=== PATIENT | female | born 1950 ===

== ENCOUNTER 2017-11-06 15:35 | Inpatient (IN) | payer MEDICARE, OTHER ==
[~2017-11-06] VITALS: Ht 154.9 cm; Wt 63.1 kg
[2017-11-06 16:48] VITALS: BP 122/70
[2017-11-06] MEDS ORDERED: DOCUSATE 100 MG CAPSULE PO PRN (17:00)
[2017-11-06] MEDS ORDERED: POLYETHYLENE GLYCOL 17 GM PACKET PO PRN (17:00)
[2017-11-06] MEDS ORDERED: ONDANSETRON ODT 4 MG PO PRN (17:00)
[2017-11-06] MEDS ORDERED: BISACODYL 10 MG SUPP PR PRN (17:00)
[2017-11-06] MEDS ORDERED: AMLO5TAB4 PO (18:04)
[2017-11-06] MEDS ORDERED: DONE10TA56 PO (18:10)
[2017-11-06] MEDS ORDERED: OXYB15TA4 PO (18:10)
[2017-11-06] MEDS ORDERED: QUET100T4 PO (18:10)
[2017-11-06] MEDS ORDERED: DIVA250T4 PO (18:10)
[2017-11-06] MEDS ORDERED: DULO60CA7 PO (18:10)
[2017-11-06] MEDS ORDERED: LEVO50TA5 PO (18:10)
[2017-11-06] MEDS ORDERED: ASPI-621 PO (18:10)
[2017-11-06] MEDS ORDERED: LOVA40TA2 PO (18:10)
[2017-11-06] MEDS ORDERED: POTA25TA4 PO (18:10)
[2017-11-06 18:16] LABS: BASOPHILS # (AUTO) 0.04 x10^3/uL (0-0.1); BASOPHILS % (AUTO) 1 % (0-1); EOSINOPHILS # (AUTO) 0.14 x10^3/uL (0-0.4); EOSINOPHILS % (AUTO) 3 % (1-7); LYMPHOCYTES # (AUTO) 1.85 x10^3/uL (1-3.4); LYMPHOCYTES % (AUTO) 34 % (22-44); MD NO; MEAN CORPUSCULAR HEMOGLOBIN 26.3 pg (27.0-34.8); MEAN CORPUSCULAR HGB CONC 32.4 g/dL (32.4-35.8); MEAN CORPUSCULAR VOLUME 81.1 fL (80-100); MEAN PLATELET VOLUME 8.6 fL (7.4-10.4); MONOCYTES # (AUTO) 0.43 x10^3/uL (0.2-0.8); MONOCYTES % (AUTO) 8 % (2-9); NEUTROPHILS # (AUTO) 3.03 x10^3/uL (1.8-6.8); NEUTROPHILS % (AUTO) 55 % (42-75); PLATELET COUNT 261 x10^3/uL (130-400); RED BLOOD COUNT 4.73 x10^6/uL (3.82-5.3); RED CELL DISTRIBUTION WIDTH 20.3 % (9.6-15.2)
[2017-11-06 18:22] LABS: HCT (SEDRATE) 38.4 % (34.6-47.8)
[2017-11-06 18:24] LABS: ALBUMIN 3.3 g/dL (3.4-5.0); ANION GAP 5 mmol/L (5-15); CALCIUM 8.6 mg/dL (8.5-10.1); CHLORIDE 103 mmol/L (98-107)
[2017-11-06 18:50] LABS: ALANINE AMINOTRANSFERASE 22 U/L (12-78); ALKALINE PHOSPHATASE 70 U/L (45-117); BILIRUBIN,TOTAL 0.2 mg/dL (0.2-1.0); CHOL/HDL RATIO 2.1; CHOLESTEROL, TOTAL 201 mg/dL (140-239); CREATININE 1.09 mg/dL (0.55-1.02); FOLATE LEVEL 17.7 ng/mL (3.1-17.5); HDL CHOL % 47 % (28-40); HDL CHOLESTEROL (DIRECT) 94 mg/dL (40-60); LDL CHOLESTEROL,CALCULATED 87 mg/dL (54-169); LDL/HDL RATIO 0.9 (0.5-3.0); T4 (THYROXINE) 11.3 mcg/dL (4.8-13.9); TOTAL PROTEIN 6.8 g/dL (6.4-8.2); TRIGLYCERIDES 100 mg/dL (50-200); VLDL CHOLESTEROL 20 mg/dL (0-25)
[2017-11-06 19:55] VITALS: BP 102/48
[2017-11-06] MEDS: NICOTINE 14MG/24 HR PATCH.TD24 TD SCH (20:19)
[2017-11-06] MEDS: DIVALPROEX 250 MG TABLET.DR PO SCH (20:20)
[2017-11-06] MEDS: QUETIAPINE 100MG TABLET PO SCH (20:21)
[2017-11-06] MEDS: LOVASTATIN 40 MG TABLET PO SCH (20:21)
[2017-11-06] MEDS: SODIUM CHLORIDE 0.9% 1,000 ML IV SCH (20:23)
[2017-11-06] MEDS: HEPARIN 5,000 UNITS/ML, 1ML SQ SCH (20:24)
[2017-11-07] MEDS: SODIUM CHLORIDE 0.9% 1,000 ML IV SCH ×3 (04:31→19:21)
[2017-11-07] MEDS: HEPARIN 5,000 UNITS/ML, 1ML SQ SCH ×3 (05:10→19:22)
[2017-11-07] MEDS: LEVOTHYROXINE 50 MCG TABLET PO SCH (05:11)
[2017-11-07 07:00] VITALS: BP 151/78
[2017-11-07] MEDS: ASPIRIN 81 MG TABLET EC PO SCH (08:18)
[2017-11-07] MEDS: DIVALPROEX 250 MG TABLET.DR PO SCH ×3 (08:19→20:28)
[2017-11-07] MEDS: QUETIAPINE 100MG TABLET PO SCH ×2 (08:19→20:28)
[2017-11-07] MEDS: DULOXETINE 30 MG CAPSULE.DR PO SCH (08:19)
[2017-11-07] MEDS ORDERED: OXYBUTYNIN CHLORIDE 5 MG TABLET PO SCH (09:00)
[2017-11-07] MEDS ORDERED: QUETIAPINE 25MG TABLET ONE (10:43)
[2017-11-07] MEDS: QUETIAPINE 25MG TABLET PO PRN (10:46)
[2017-11-07] MEDS ORDERED: QUETIAPINE 25MG TABLET PO SCH (11:00)
[2017-11-07 11:57] LABS: MICROSCOPIC AUTO
[2017-11-07 12:01] LABS: CULTURE INDICATED? YES
[2017-11-07] MEDS: NICOTINE 14MG/24 HR PATCH.TD24 TD SCH (19:18)
[2017-11-07 19:50] VITALS: BP 133/72
[2017-11-07] MEDS: LOVASTATIN 40 MG TABLET PO SCH (20:27)
[2017-11-07] MEDS: OXYBUTYNIN CHLORIDE 5 MG TABLET PO SCH (20:28)
[2017-11-08] MEDS: QUETIAPINE 25MG TABLET PO PRN ×2 (02:10→18:37)
[2017-11-08] MEDS: SODIUM CHLORIDE 0.9% 1,000 ML IV SCH ×2 (03:09→12:00)
[2017-11-08] MEDS: LEVOTHYROXINE 50 MCG TABLET PO SCH (04:23)
[2017-11-08] MEDS: ACETAMINOPHEN 325 MG TABLET PO PRN (04:24)
[2017-11-08] MEDS: HEPARIN 5,000 UNITS/ML, 1ML SQ SCH ×3 (05:00→21:15)
[2017-11-08 07:23] VITALS: BP 135/78
[2017-11-08] MEDS: OXYBUTYNIN CHLORIDE 5 MG TABLET PO SCH ×2 (09:42→21:14)
[2017-11-08] MEDS: DULOXETINE 30 MG CAPSULE.DR PO SCH (09:42)
[2017-11-08] MEDS: QUETIAPINE 100MG TABLET PO SCH ×2 (09:42→21:14)
[2017-11-08] MEDS: ASPIRIN 81 MG TABLET EC PO SCH (09:42)
[2017-11-08] MEDS: DIVALPROEX 250 MG TABLET.DR PO SCH ×3 (09:42→21:13)
[2017-11-08] MEDS: LORazepam 0.5MG TABLET PO PRN (18:36)
[2017-11-08 20:00] VITALS: BP 126/78
[2017-11-08] MEDS ORDERED: SODIUM CHLORIDE FLUSH 10ML SYR IVF SCH (21:00)
[2017-11-08] MEDS: LOVASTATIN 40 MG TABLET PO SCH (21:13)
[2017-11-08] MEDS: NICOTINE 14MG/24 HR PATCH.TD24 TD SCH (21:19)
[2017-11-09] MEDS: HEPARIN 5,000 UNITS/ML, 1ML SQ SCH ×2 (05:36→12:52)
[2017-11-09] MEDS: LEVOTHYROXINE 50 MCG TABLET PO SCH (05:36)
[2017-11-09 07:41] VITALS: BP 138/69
[2017-11-09] MEDS: OXYBUTYNIN CHLORIDE 5 MG TABLET PO SCH ×2 (08:56→20:04)
[2017-11-09] MEDS: DIVALPROEX 250 MG TABLET.DR PO SCH ×3 (08:56→20:04)
[2017-11-09] MEDS: QUETIAPINE 100MG TABLET PO SCH ×2 (08:57→20:05)
[2017-11-09] MEDS: ASPIRIN 81 MG TABLET EC PO SCH (08:57)
[2017-11-09] MEDS: DULOXETINE 30 MG CAPSULE.DR PO SCH (08:57)
[2017-11-09] MEDS: QUETIAPINE 25MG TABLET PO PRN (15:53)
[2017-11-09] MEDS: LORazepam 0.5MG TABLET PO PRN (15:53)
[2017-11-09] MEDS: NICOTINE 14MG/24 HR PATCH.TD24 TD SCH (19:11)
[2017-11-09 20:00] VITALS: BP 100/70
[2017-11-09] MEDS: LOVASTATIN 40 MG TABLET PO SCH (20:04)
[2017-11-09] MEDS: RISPERIDONE 0.5 MG TABLET PO SCH (20:05)
[2017-11-10] MEDS: LEVOTHYROXINE 50 MCG TABLET PO SCH (05:15)
[2017-11-10 08:03] VITALS: BP 114/74
[2017-11-10] MEDS: DULOXETINE 30 MG CAPSULE.DR PO SCH (08:43)
[2017-11-10] MEDS: ASPIRIN 81 MG TABLET EC PO SCH (08:44)
[2017-11-10] MEDS: DIVALPROEX 250 MG TABLET.DR PO SCH ×3 (08:44→20:21)
[2017-11-10] MEDS: LORazepam 0.5MG TABLET PO PRN ×2 (08:45→19:54)
[2017-11-10] MEDS: RISPERIDONE 0.5 MG TABLET PO SCH ×2 (08:45→20:22)
[2017-11-10] MEDS: OXYBUTYNIN CHLORIDE 5 MG TABLET PO SCH ×2 (08:45→20:22)
[2017-11-10] MEDS: QUETIAPINE 100MG TABLET PO SCH ×2 (08:47→20:22)
[2017-11-10] MEDS: QUETIAPINE 25MG TABLET PO PRN (13:52)
[2017-11-10 19:36] VITALS: BP 111/69
[2017-11-10] MEDS: NICOTINE 14MG/24 HR PATCH.TD24 TD SCH (19:53)
[2017-11-10] MEDS: LOVASTATIN 40 MG TABLET PO SCH (20:21)
[2017-11-11] MEDS: QUETIAPINE 25MG TABLET PO PRN ×2 (04:50→17:41)
[2017-11-11] MEDS: LEVOTHYROXINE 50 MCG TABLET PO SCH (05:20)
[2017-11-11 07:22] VITALS: BP 116/76
[2017-11-11] MEDS: OXYBUTYNIN CHLORIDE 5 MG TABLET PO SCH ×2 (08:37→20:10)
[2017-11-11] MEDS: DIVALPROEX 250 MG TABLET.DR PO SCH ×3 (08:37→20:10)
[2017-11-11] MEDS: DULOXETINE 30 MG CAPSULE.DR PO SCH (08:37)
[2017-11-11] MEDS: RISPERIDONE 0.5 MG TABLET PO SCH ×2 (08:38→20:12)
[2017-11-11] MEDS: ASPIRIN 81 MG TABLET EC PO SCH (08:38)
[2017-11-11] MEDS: QUETIAPINE 100MG TABLET PO SCH ×2 (08:39→20:11)
[2017-11-11] MEDS: LORazepam 0.5MG TABLET PO PRN (17:41)
[2017-11-11 19:39] VITALS: BP 119/76
[2017-11-11] MEDS: LOVASTATIN 40 MG TABLET PO SCH (20:10)
[2017-11-11] MEDS: NICOTINE 14MG/24 HR PATCH.TD24 TD SCH (20:10)
[2017-11-12] MEDS: LEVOTHYROXINE 50 MCG TABLET PO SCH (05:34)
[2017-11-12 07:36] VITALS: BP 113/70
[2017-11-12] MEDS: QUETIAPINE 100MG TABLET PO SCH ×2 (07:56→20:21)
[2017-11-12] MEDS: DULOXETINE 30 MG CAPSULE.DR PO SCH (07:56)
[2017-11-12] MEDS: DIVALPROEX 250 MG TABLET.DR PO SCH ×3 (07:56→20:21)
[2017-11-12] MEDS: OXYBUTYNIN CHLORIDE 5 MG TABLET PO SCH ×2 (07:57→20:21)
[2017-11-12] MEDS: ASPIRIN 81 MG TABLET EC PO SCH (07:57)
[2017-11-12] MEDS: RISPERIDONE 0.5 MG TABLET PO SCH ×2 (07:57→20:21)
[2017-11-12 19:34] VITALS: BP 121/82
[2017-11-12] MEDS: LORazepam 0.5MG TABLET PO PRN (20:21)
[2017-11-12] MEDS: LOVASTATIN 40 MG TABLET PO SCH (20:21)
[2017-11-12] MEDS: NICOTINE 14MG/24 HR PATCH.TD24 TD SCH (20:22)
[2017-11-13] MEDS: LEVOTHYROXINE 50 MCG TABLET PO SCH (05:43)
[2017-11-13 07:20] VITALS: BP 126/77
[2017-11-13] MEDS: DULOXETINE 30 MG CAPSULE.DR PO SCH (09:05)
[2017-11-13] MEDS: DIVALPROEX 250 MG TABLET.DR PO SCH ×3 (09:05→20:53)
[2017-11-13] MEDS: ASPIRIN 81 MG TABLET EC PO SCH (09:06)
[2017-11-13] MEDS: OXYBUTYNIN CHLORIDE 5 MG TABLET PO SCH ×2 (09:06→20:54)
[2017-11-13] MEDS: RISPERIDONE 0.5 MG TABLET PO SCH ×2 (09:07→20:54)
[2017-11-13] MEDS: QUETIAPINE 100MG TABLET PO SCH ×2 (09:09→20:56)
[2017-11-13] MEDS: LORazepam 0.5MG TABLET PO PRN ×2 (13:00→22:03)
[2017-11-13 19:49] VITALS: BP 114/63
[2017-11-13] MEDS: NICOTINE 14MG/24 HR PATCH.TD24 TD SCH (20:53)
[2017-11-13] MEDS: LOVASTATIN 40 MG TABLET PO SCH (20:54)
[2017-11-14] MEDS: ACETAMINOPHEN 325 MG TABLET PO PRN ×2 (01:45→09:00)
[2017-11-14] MEDS: QUETIAPINE 25MG TABLET PO PRN ×2 (02:00→11:41)
[2017-11-14] MEDS: LEVOTHYROXINE 50 MCG TABLET PO SCH (05:17)
[2017-11-14] MEDS: ASPIRIN 81 MG TABLET EC PO SCH (08:13)
[2017-11-14] MEDS: OXYBUTYNIN CHLORIDE 5 MG TABLET PO SCH ×2 (08:13→20:38)
[2017-11-14] MEDS: DIVALPROEX 250 MG TABLET.DR PO SCH ×3 (08:13→20:37)
[2017-11-14] MEDS: DULOXETINE 30 MG CAPSULE.DR PO SCH (08:13)
[2017-11-14] MEDS: QUETIAPINE 100MG TABLET PO SCH ×2 (08:13→20:41)
[2017-11-14] MEDS: RISPERIDONE 0.5 MG TABLET PO SCH ×2 (08:13→20:40)
[2017-11-14 08:16] VITALS: BP 143/86
[2017-11-14] MEDS: LORazepam 0.5MG TABLET PO PRN ×2 (11:41→20:41)
[2017-11-14] MEDS: NICOTINE 14MG/24 HR PATCH.TD24 TD SCH (19:24)
[2017-11-14 19:53] VITALS: BP 119/78
[2017-11-14] MEDS: LOVASTATIN 40 MG TABLET PO SCH (20:38)
[2017-11-15] MEDS: LEVOTHYROXINE 50 MCG TABLET PO SCH (05:42)
[2017-11-15 07:44] VITALS: BP 114/72
[2017-11-15] MEDS ORDERED: DULOXETINE 30 MG CAPSULE.DR PO SCH (09:00)
[2017-11-15] MEDS ORDERED: DULOXETINE 20 MG CAPSULE.DR ONE (09:15)
[2017-11-15] MEDS: ASPIRIN 81 MG TABLET EC PO SCH (09:21)
[2017-11-15] MEDS: RISPERIDONE 0.5 MG TABLET PO SCH (09:22)
[2017-11-15] MEDS: DIVALPROEX 250 MG TABLET.DR PO SCH ×3 (09:22→20:24)
[2017-11-15] MEDS: OXYBUTYNIN CHLORIDE 5 MG TABLET PO SCH ×2 (09:23→20:26)
[2017-11-15] MEDS: QUETIAPINE 100MG TABLET PO SCH ×2 (09:23→20:24)
[2017-11-15] MEDS: DULOXETINE 20 MG CAPSULE.DR PO SCH (09:35)
[2017-11-15 16:08] LABS: MICROSCOPIC INDICATED
[2017-11-15] MEDS: NICOTINE 14MG/24 HR PATCH.TD24 TD SCH (19:22)
[2017-11-15 19:43] VITALS: BP 104/69
[2017-11-15] MEDS: LOVASTATIN 40 MG TABLET PO SCH (20:23)
[2017-11-15] MEDS: LORazepam 0.5MG TABLET PO PRN (20:24)
[2017-11-15] MEDS: ACETAMINOPHEN 325 MG TABLET PO PRN (20:24)
[2017-11-16 05:11] LABS: BASOPHILS # (AUTO) 0.04 x10^3/uL (0-0.1); BASOPHILS % (AUTO) 1 % (0-1); EOSINOPHILS # (AUTO) 0.13 x10^3/uL (0-0.4); EOSINOPHILS % (AUTO) 3 % (1-7); LYMPHOCYTES # (AUTO) 1.53 x10^3/uL (1-3.4); LYMPHOCYTES % (AUTO) 35 % (22-44); MD NO; MEAN CORPUSCULAR HEMOGLOBIN 27.1 pg (27.0-34.8); MEAN CORPUSCULAR HGB CONC 33.3 g/dL (32.4-35.8); MEAN CORPUSCULAR VOLUME 81.4 fL (80-100); MONOCYTES # (AUTO) 0.47 x10^3/uL (0.2-0.8); MONOCYTES % (AUTO) 11 % (2-9); NEUTROPHILS # (AUTO) 2.16 x10^3/uL (1.8-6.8); NEUTROPHILS % (AUTO) 50 % (42-75); PLATELET COUNT 200 x10^3/uL (130-400); RED CELL DISTRIBUTION WIDTH 19.5 % (9.6-15.2)
[2017-11-16 05:15] LABS: CHLORIDE 104 mmol/L (98-107)
[2017-11-16 05:21] LABS: ALANINE AMINOTRANSFERASE 16 U/L (12-78); ALBUMIN 3.3 g/dL (3.4-5.0); ALKALINE PHOSPHATASE 83 U/L (45-117); ANION GAP 5 mmol/L (5-15); BILIRUBIN,TOTAL 0.2 mg/dL (0.2-1.0); CALCIUM 8.8 mg/dL (8.5-10.1); CREATININE 1.06 mg/dL (0.55-1.02); TOTAL PROTEIN 6.7 g/dL (6.4-8.2)
[2017-11-16] MEDS: LEVOTHYROXINE 50 MCG TABLET PO SCH (06:20)
[2017-11-16 08:20] VITALS: BP 116/67
[2017-11-16] MEDS: DULOXETINE 20 MG CAPSULE.DR PO SCH (08:28)
[2017-11-16] MEDS: DIVALPROEX 250 MG TABLET.DR PO SCH ×3 (08:28→20:12)
[2017-11-16] MEDS: ASPIRIN 81 MG TABLET EC PO SCH (08:28)
[2017-11-16] MEDS: QUETIAPINE 100MG TABLET PO SCH ×2 (08:29→20:11)
[2017-11-16] MEDS: OXYBUTYNIN CHLORIDE 5 MG TABLET PO SCH ×2 (08:29→20:11)
[2017-11-16] MEDS: NICOTINE 14MG/24 HR PATCH.TD24 TD SCH (18:27)
[2017-11-16] MEDS: LOVASTATIN 40 MG TABLET PO SCH (20:11)
[2017-11-16] MEDS: ACETAMINOPHEN 325 MG TABLET PO PRN (20:11)
[2017-11-16 20:15] VITALS: BP 132/78
[2017-11-17] MEDS: LEVOTHYROXINE 50 MCG TABLET PO SCH (05:23)
[2017-11-17 07:29] VITALS: BP 114/57
[2017-11-17] MEDS: ASPIRIN 81 MG TABLET EC PO SCH (07:57)
[2017-11-17] MEDS: DIVALPROEX 250 MG TABLET.DR PO SCH ×3 (07:57→20:16)
[2017-11-17] MEDS: DULOXETINE 20 MG CAPSULE.DR PO SCH ×3 (07:57→08:12)
[2017-11-17] MEDS: OXYBUTYNIN CHLORIDE 5 MG TABLET PO SCH ×2 (07:58→20:18)
[2017-11-17] MEDS: QUETIAPINE 100MG TABLET PO SCH ×2 (07:58→20:17)
[2017-11-17] MEDS: LORazepam 0.5MG TABLET PO PRN (09:08)
[2017-11-17] MEDS: QUETIAPINE 25MG TABLET PO PRN (09:08)
[2017-11-17] MEDS: NICOTINE 14MG/24 HR PATCH.TD24 TD SCH (19:38)
[2017-11-17 19:46] VITALS: BP_SYST 109; BP_SYST 123; BP_DIAS 66; BP_DIAS 78
[2017-11-17] MEDS: TRAZODONE 50MG TABLET PO SCH (20:16)
[2017-11-17] MEDS: LOVASTATIN 40 MG TABLET PO SCH (20:17)
[2017-11-18] MEDS: LORazepam 0.5MG TABLET PO PRN ×3 (00:45→20:08)
[2017-11-18] MEDS: LEVOTHYROXINE 50 MCG TABLET PO SCH (05:56)
[2017-11-18 07:27] VITALS: BP 122/71
[2017-11-18] MEDS: OXYBUTYNIN CHLORIDE 5 MG TABLET PO SCH ×2 (08:14→20:07)
[2017-11-18] MEDS: DIVALPROEX 250 MG TABLET.DR PO SCH ×3 (08:14→20:06)
[2017-11-18] MEDS: ASPIRIN 81 MG TABLET EC PO SCH (08:15)
[2017-11-18] MEDS: QUETIAPINE 100MG TABLET PO SCH (08:15)
[2017-11-18] MEDS ORDERED: OLANZAPINE 10 MG TABLET PO SCH (12:30)
[2017-11-18] MEDS ORDERED: OLANZAPINE 10 MG TABLET ONE (14:20)
[2017-11-18] MEDS ORDERED: OLANZAPINE 10 MG INJ IM STA (18:30)
[2017-11-18] MEDS ORDERED: OLANZAPINE 10 MG INJ IM ONE (18:34)
[2017-11-18] MEDS: NICOTINE 14MG/24 HR PATCH.TD24 TD SCH (19:38)
[2017-11-18 19:44] VITALS: BP 110/72
[2017-11-18] MEDS: TRAZODONE 50MG TABLET PO SCH (20:06)
[2017-11-18] MEDS: OLANZAPINE 10 MG TABLET PO SCH (20:07)
[2017-11-18] MEDS: LOVASTATIN 40 MG TABLET PO SCH (20:08)
[2017-11-19] MEDS: LORazepam 0.5MG TABLET PO PRN ×3 (01:25→20:42)
[2017-11-19] MEDS: LEVOTHYROXINE 50 MCG TABLET PO SCH (05:29)
[2017-11-19 07:18] VITALS: BP 117/73
[2017-11-19] MEDS: DIVALPROEX 250 MG TABLET.DR PO SCH ×3 (07:40→20:40)
[2017-11-19] MEDS: OLANZAPINE 10 MG TABLET PO SCH ×2 (07:41→16:58)
[2017-11-19] MEDS: OXYBUTYNIN CHLORIDE 5 MG TABLET PO SCH ×2 (07:41→20:42)
[2017-11-19] MEDS: ASPIRIN 81 MG TABLET EC PO SCH (07:42)
[2017-11-19] MEDS: NICOTINE 14MG/24 HR PATCH.TD24 TD SCH (19:00)
[2017-11-19 19:53] VITALS: BP 128/74
[2017-11-19] MEDS: TRAZODONE 50MG TABLET PO SCH (20:40)
[2017-11-19] MEDS: LOVASTATIN 40 MG TABLET PO SCH (20:41)
[2017-11-19] MEDS: LORazepam 2 MG/ML, 1ML IM PRN (21:51)
[2017-11-19] MEDS ORDERED: LORazepam 2 MG/ML, 1ML IM ONE (23:00)
[2017-11-20] MEDS: LEVOTHYROXINE 50 MCG TABLET PO SCH ×2 (05:59→09:25)
[2017-11-20 09:13] VITALS: BP 127/79
[2017-11-20] MEDS: OLANZAPINE 10 MG TABLET PO SCH ×2 (09:52→17:15)
[2017-11-20] MEDS: ASPIRIN 81 MG TABLET EC PO SCH (09:52)
[2017-11-20] MEDS: DIVALPROEX 250 MG TABLET.DR PO SCH ×3 (09:52→21:55)
[2017-11-20] MEDS: OXYBUTYNIN CHLORIDE 5 MG TABLET PO SCH ×2 (09:53→20:30)
[2017-11-20] MEDS: LORazepam 0.5MG TABLET PO PRN ×2 (13:53→20:32)
[2017-11-20] MEDS: NICOTINE 14MG/24 HR PATCH.TD24 TD SCH (18:41)
[2017-11-20 19:24] VITALS: BP 121/80
[2017-11-20] MEDS: LOVASTATIN 40 MG TABLET PO SCH (20:30)
[2017-11-20] MEDS: GABAPENTIN 300 MG CAPSULE PO SCH (20:30)
[2017-11-20] MEDS ORDERED: LORazepam 2 MG/ML, 1ML IM ONE (23:00)
[2017-11-21] MEDS: LEVOTHYROXINE 50 MCG TABLET PO SCH ×2 (06:11→10:06)
[2017-11-21 08:55] VITALS: BP 126/74
[2017-11-21] MEDS: OXYBUTYNIN CHLORIDE 5 MG TABLET PO SCH ×2 (09:00→21:02)
[2017-11-21] MEDS: DIVALPROEX 250 MG TABLET.DR PO SCH ×3 (11:04→21:02)
[2017-11-21] MEDS: ASPIRIN 81 MG TABLET EC PO SCH (11:04)
[2017-11-21] MEDS: OLANZAPINE 10 MG TABLET PO SCH ×2 (11:05→17:03)
[2017-11-21] MEDS: NICOTINE 14MG/24 HR PATCH.TD24 TD SCH (17:24)
[2017-11-21 19:44] VITALS: BP 106/71
[2017-11-21] MEDS: GABAPENTIN 300 MG CAPSULE PO SCH (20:48)
[2017-11-21] MEDS: LORazepam 2 MG/ML, 1ML IM PRN (21:00)
[2017-11-21] MEDS: LOVASTATIN 40 MG TABLET PO SCH (21:03)
[2017-11-22] MEDS ORDERED: LORazepam 2 MG/ML, 1ML IM PRN (04:30)
[2017-11-22] MEDS: LEVOTHYROXINE 50 MCG TABLET PO SCH (06:01)
[2017-11-22 07:27] VITALS: BP 99/69
[2017-11-22 07:55] VITALS: BP 99/69
[2017-11-22] MEDS: OXYBUTYNIN CHLORIDE 5 MG TABLET PO SCH ×2 (09:59→21:47)
[2017-11-22] MEDS: OLANZAPINE 10 MG TABLET PO SCH ×2 (09:59→16:12)
[2017-11-22] MEDS: DIVALPROEX 250 MG TABLET.DR PO SCH ×3 (09:59→21:42)
[2017-11-22] MEDS: ASPIRIN 81 MG TABLET EC PO SCH (09:59)
[2017-11-22] MEDS: LORazepam 0.5MG TABLET PO PRN (09:59)
[2017-11-22 15:06] LABS: BASOPHILS # (AUTO) 0.05 x10^3/uL (0-0.1); BASOPHILS % (AUTO) 1 % (0-1); EOSINOPHILS # (AUTO) 0.14 x10^3/uL (0-0.4); EOSINOPHILS % (AUTO) 2 % (1-7); LYMPHOCYTES # (AUTO) 1.54 x10^3/uL (1-3.4); LYMPHOCYTES % (AUTO) 22 % (22-44); MD NO; MEAN CORPUSCULAR HEMOGLOBIN 26.4 pg (27.0-34.8); MEAN CORPUSCULAR HGB CONC 32.8 g/dL (32.4-35.8); MEAN CORPUSCULAR VOLUME 80.6 fL (80-100); MONOCYTES # (AUTO) 0.73 x10^3/uL (0.2-0.8); MONOCYTES % (AUTO) 11 % (2-9); NEUTROPHILS % (AUTO) 65 % (42-75); PLATELET COUNT 219 x10^3/uL (130-400); RED CELL DISTRIBUTION WIDTH 20.7 % (9.6-15.2)
[2017-11-22 15:09] LABS: ALBUMIN 3.3 g/dL (3.4-5.0); ANION GAP 7 mmol/L (5-15); CALCIUM 9.2 mg/dL (8.5-10.1); CHLORIDE 108 mmol/L (98-107); CREATININE 0.93 mg/dL (0.55-1.02)
[2017-11-22] MEDS ORDERED: LORazepam 2 MG/ML, 1ML IVPush ONE (15:30)
[2017-11-22] MEDS ORDERED: OMNIPAQUE 350 MG/ML, 75ML BOTTLE ONE (17:16)
[2017-11-22] MEDS: NICOTINE 14MG/24 HR PATCH.TD24 TD SCH (18:23)
[2017-11-22] MEDS ORDERED: LORazepam 2 MG/ML, 1ML ONE (20:12)
[2017-11-22] MEDS ORDERED: LORazepam 2 MG/ML, 1ML IM ONE (20:15)
[2017-11-22 21:00] VITALS: BP 123/75
[2017-11-22] MEDS: LOVASTATIN 40 MG TABLET PO SCH (21:47)
[2017-11-22] MEDS: GABAPENTIN 300 MG CAPSULE PO SCH (21:47)
[2017-11-23] MEDS: LEVOTHYROXINE 50 MCG TABLET PO SCH (06:22)
[2017-11-23 08:00] VITALS: BP 114/75
[2017-11-23 09:00] LABS: MICROSCOPIC AUTO
[2017-11-23 09:04] LABS: CULTURE INDICATED? NO
[2017-11-23] MEDS: OXYBUTYNIN CHLORIDE 5 MG TABLET PO SCH ×2 (09:52→20:02)
[2017-11-23] MEDS: DIVALPROEX 250 MG TABLET.DR PO SCH ×3 (09:53→20:03)
[2017-11-23] MEDS: ASPIRIN 81 MG TABLET EC PO SCH (09:53)
[2017-11-23] MEDS: OLANZAPINE 10 MG TABLET PO SCH ×2 (09:53→17:29)
[2017-11-23] MEDS: ACETAMINOPHEN 325 MG TABLET PO PRN ×2 (09:53→16:06)
[2017-11-23] MEDS ORDERED: OLANZAPINE 10 MG INJ IM ONE (13:45)
[2017-11-23] MEDS: OLANZAPINE 10 MG INJ IM PRN (14:12)
[2017-11-23] MEDS: NICOTINE 14MG/24 HR PATCH.TD24 TD SCH (18:17)
[2017-11-23 19:23] VITALS: BP 121/80
[2017-11-23] MEDS: LOVASTATIN 40 MG TABLET PO SCH (20:02)
[2017-11-23] MEDS: GABAPENTIN 300 MG CAPSULE PO SCH (20:03)
[2017-11-24] MEDS: LEVOTHYROXINE 50 MCG TABLET PO SCH (05:51)
[2017-11-24] MEDS: ASPIRIN 81 MG TABLET EC PO SCH (07:56)
[2017-11-24] MEDS: OXYBUTYNIN CHLORIDE 5 MG TABLET PO SCH ×2 (07:56→20:29)
[2017-11-24] MEDS: DIVALPROEX 250 MG TABLET.DR PO SCH (07:56)
[2017-11-24] MEDS: OLANZAPINE 10 MG TABLET PO SCH (07:56)
[2017-11-24] MEDS: LORazepam 0.5MG TABLET PO PRN (07:57)
[2017-11-24 08:01] VITALS: BP 135/86
[2017-11-24 08:27] LABS: BASOPHILS # (AUTO) 0.05 x10^3/uL (0-0.1); BASOPHILS % (AUTO) 1 % (0-1); EOSINOPHILS # (AUTO) 0.09 x10^3/uL (0-0.4); EOSINOPHILS % (AUTO) 1 % (1-7); LYMPHOCYTES # (AUTO) 2.44 x10^3/uL (1-3.4); LYMPHOCYTES % (AUTO) 27 % (22-44); MD NO; MEAN CORPUSCULAR HEMOGLOBIN 26.3 pg (27.0-34.8); MEAN CORPUSCULAR HGB CONC 32.4 g/dL (32.4-35.8); MEAN CORPUSCULAR VOLUME 81.2 fL (80-100); MEAN PLATELET VOLUME 9.4 fL (7.4-10.4); MONOCYTES % (AUTO) 12 % (2-9); NEUTROPHILS # (AUTO) 5.24 x10^3/uL (1.8-6.8); NEUTROPHILS % (AUTO) 59 % (42-75); PLATELET COUNT 223 x10^3/uL (130-400); RED BLOOD COUNT 4.73 x10^6/uL (3.82-5.3); RED CELL DISTRIBUTION WIDTH 21.1 % (9.6-15.2)
[2017-11-24 08:35] LABS: ANION GAP 5 mmol/L (5-15); CALCIUM 10.2 mg/dL (8.5-10.1); CHLORIDE 109 mmol/L (98-107); CREATININE 1.12 mg/dL (0.55-1.02)
[2017-11-24] MEDS ORDERED: ZIPRASIDONE 20MG CAPSULE ONE (11:10)
[2017-11-24] MEDS ORDERED: ZIPRASIDONE 20MG CAPSULE PO SCH (11:30)
[2017-11-24] MEDS: NICOTINE 14MG/24 HR PATCH.TD24 TD SCH (19:30)
[2017-11-24 19:53] VITALS: BP 125/67
[2017-11-24] MEDS: DIVALPROEX 500 MG TABLET.DR PO SCH (20:29)
[2017-11-24] MEDS: ZIPRASIDONE 20MG CAPSULE PO SCH (20:30)
[2017-11-24] MEDS: GABAPENTIN 300 MG CAPSULE PO SCH (20:30)
[2017-11-24] MEDS: LOVASTATIN 40 MG TABLET PO SCH (20:30)
[2017-11-24] MEDS ORDERED: OLANZAPINE 5 MG TABLET PO SCH (21:00)
[2017-11-25] MEDS: LORazepam 0.5MG TABLET PO PRN ×3 (00:24→16:26)
[2017-11-25] MEDS: LEVOTHYROXINE 50 MCG TABLET PO SCH (05:25)
[2017-11-25] MEDS: ASPIRIN 81 MG TABLET EC PO SCH (07:59)
[2017-11-25] MEDS: OXYBUTYNIN CHLORIDE 5 MG TABLET PO SCH ×2 (07:59→20:43)
[2017-11-25] MEDS: ZIPRASIDONE 20MG CAPSULE PO SCH ×3 (08:00→20:44)
[2017-11-25] MEDS: NICOTINE 14MG/24 HR PATCH.TD24 TD SCH (19:31)
[2017-11-25] MEDS: DIVALPROEX 500 MG TABLET.DR PO SCH (20:43)
[2017-11-25] MEDS: LOVASTATIN 40 MG TABLET PO SCH (20:44)
[2017-11-25] MEDS: GABAPENTIN 300 MG CAPSULE PO SCH (20:45)
[2017-11-25 23:33] VITALS: BP 90/56
[2017-11-26 06:02] LABS: ANION GAP 6 mmol/L (5-15); CALCIUM 8.5 mg/dL (8.5-10.1); CHLORIDE 111 mmol/L (98-107)
[2017-11-26] MEDS: LEVOTHYROXINE 50 MCG TABLET PO SCH (06:12)
[2017-11-26 07:44] VITALS: BP 100/64
[2017-11-26] MEDS: ZIPRASIDONE 20MG CAPSULE PO SCH ×3 (07:49→20:09)
[2017-11-26] MEDS: OXYBUTYNIN CHLORIDE 5 MG TABLET PO SCH ×2 (07:49→20:08)
[2017-11-26] MEDS: ASPIRIN 81 MG TABLET EC PO SCH (07:50)
[2017-11-26] MEDS: LORazepam 0.5MG TABLET PO PRN ×3 (07:50→23:50)
[2017-11-26] MEDS: NICOTINE 14MG/24 HR PATCH.TD24 TD SCH (19:11)
[2017-11-26 19:32] VITALS: BP 117/70
[2017-11-26] MEDS: DIVALPROEX 500 MG TABLET.DR PO SCH (20:08)
[2017-11-26] MEDS: GABAPENTIN 300 MG CAPSULE PO SCH (20:09)
[2017-11-26] MEDS: LOVASTATIN 40 MG TABLET PO SCH (20:09)
[2017-11-27] MEDS: LEVOTHYROXINE 50 MCG TABLET PO SCH (05:39)
[2017-11-27 07:22] VITALS: BP 105/64
[2017-11-27] MEDS: OXYBUTYNIN CHLORIDE 5 MG TABLET PO SCH ×2 (09:18→20:49)
[2017-11-27] MEDS: ASPIRIN 81 MG TABLET EC PO SCH (09:18)
[2017-11-27] MEDS: ZIPRASIDONE 20MG CAPSULE PO SCH ×3 (09:19→20:50)
[2017-11-27] MEDS: LORazepam 0.5MG TABLET PO PRN ×2 (09:19→18:30)
[2017-11-27] MEDS ORDERED: ZIPRASIDONE 20MG CAPSULE PO ONE (18:30)
[2017-11-27] MEDS: NICOTINE 14MG/24 HR PATCH.TD24 TD SCH (19:26)
[2017-11-27 19:34] VITALS: BP 124/76
[2017-11-27] MEDS: GABAPENTIN 300 MG CAPSULE PO SCH (20:49)
[2017-11-27] MEDS: DIVALPROEX 500 MG TABLET.DR PO SCH ×2 (20:49→21:00)
[2017-11-27] MEDS: LOVASTATIN 40 MG TABLET PO SCH (20:49)
[2017-11-28] MEDS: LEVOTHYROXINE 50 MCG TABLET PO SCH (06:14)
[2017-11-28 07:53] VITALS: BP 132/81
[2017-11-28] MEDS: ASPIRIN 81 MG TABLET EC PO SCH (08:54)
[2017-11-28] MEDS: ZIPRASIDONE 20MG CAPSULE PO SCH ×3 (08:54→19:15)
[2017-11-28] MEDS: OXYBUTYNIN CHLORIDE 5 MG TABLET PO SCH ×2 (08:54→19:15)
[2017-11-28] MEDS: LORazepam 0.5MG TABLET PO PRN ×2 (10:44→19:15)
[2017-11-28] MEDS: GABAPENTIN 300 MG CAPSULE PO SCH (19:15)
[2017-11-28] MEDS: DIVALPROEX 500 MG TABLET.DR PO SCH (19:15)
[2017-11-28] MEDS: LOVASTATIN 40 MG TABLET PO SCH (19:15)
[2017-11-28] MEDS: NICOTINE 14MG/24 HR PATCH.TD24 TD SCH (19:24)
[2017-11-28 19:30] VITALS: BP 142/84
[2017-11-29] MEDS: LORazepam 0.5MG TABLET PO PRN (03:16)
[2017-11-29] MEDS: LEVOTHYROXINE 50 MCG TABLET PO SCH (05:39)
[2017-11-29 07:10] VITALS: BP 116/75
[2017-11-29] MEDS: ASPIRIN 81 MG TABLET EC PO SCH (09:49)
[2017-11-29] MEDS: ZIPRASIDONE 20MG CAPSULE PO SCH ×3 (09:49→20:35)
[2017-11-29] MEDS: OXYBUTYNIN CHLORIDE 5 MG TABLET PO SCH ×2 (09:49→20:36)
[2017-11-29] MEDS: NICOTINE 14MG/24 HR PATCH.TD24 TD SCH (19:48)
[2017-11-29 20:23] VITALS: BP 139/85
[2017-11-29] MEDS: DIVALPROEX 500 MG TABLET.DR PO SCH (20:35)
[2017-11-29] MEDS: GABAPENTIN 300 MG CAPSULE PO SCH (20:35)
[2017-11-29] MEDS: LOVASTATIN 40 MG TABLET PO SCH (20:35)
[2017-11-30] MEDS: LEVOTHYROXINE 50 MCG TABLET PO SCH (06:19)
[2017-11-30 07:15] VITALS: BP 110/68
[2017-11-30] MEDS: ZIPRASIDONE 20MG CAPSULE PO SCH ×3 (08:24→20:26)
[2017-11-30] MEDS: OXYBUTYNIN CHLORIDE 5 MG TABLET PO SCH ×2 (08:25→20:26)
[2017-11-30] MEDS: ASPIRIN 81 MG TABLET EC PO SCH (08:25)
[2017-11-30] MEDS: ACETAMINOPHEN 325 MG TABLET PO PRN (08:33)
[2017-11-30] MEDS: NICOTINE 14MG/24 HR PATCH.TD24 TD SCH (18:09)
[2017-11-30 19:07] VITALS: BP 114/72
[2017-11-30] MEDS: GABAPENTIN 300 MG CAPSULE PO SCH (20:26)
[2017-11-30] MEDS: DIVALPROEX 500 MG TABLET.DR PO SCH (20:26)
[2017-11-30] MEDS: LOVASTATIN 40 MG TABLET PO SCH (20:26)
[2017-12-01] MEDS: ACETAMINOPHEN 325 MG TABLET PO PRN (02:36)
[2017-12-01] MEDS: LEVOTHYROXINE 50 MCG TABLET PO SCH (07:00)
[2017-12-01] MEDS: ASPIRIN 81 MG TABLET EC PO SCH (07:56)
[2017-12-01] MEDS: OXYBUTYNIN CHLORIDE 5 MG TABLET PO SCH ×2 (07:56→20:01)
[2017-12-01] MEDS: ZIPRASIDONE 20MG CAPSULE PO SCH ×3 (07:57→20:00)
[2017-12-01 19:24] VITALS: BP 134/75
[2017-12-01] MEDS: NICOTINE 14MG/24 HR PATCH.TD24 TD SCH (20:00)
[2017-12-01] MEDS: GABAPENTIN 300 MG CAPSULE PO SCH (20:01)
[2017-12-01] MEDS: LOVASTATIN 40 MG TABLET PO SCH (20:01)
[2017-12-01] MEDS: DIVALPROEX 500 MG TABLET.DR PO SCH (20:01)
[2017-12-02] MEDS: LEVOTHYROXINE 50 MCG TABLET PO SCH (05:39)
[2017-12-02 07:18] VITALS: BP 118/79
[2017-12-02] MEDS: ASPIRIN 81 MG TABLET EC PO SCH (08:34)
[2017-12-02] MEDS: OXYBUTYNIN CHLORIDE 5 MG TABLET PO SCH ×2 (08:34→22:47)
[2017-12-02] MEDS: ZIPRASIDONE 20MG CAPSULE PO SCH ×3 (08:35→22:47)
[2017-12-02] MEDS: LORazepam 0.5MG TABLET PO PRN (15:44)
[2017-12-02 21:49] VITALS: BP 89/52
[2017-12-02 21:51] VITALS: BP 91/54
[2017-12-02 22:45] VITALS: BP 127/63
[2017-12-02] MEDS: GABAPENTIN 300 MG CAPSULE PO SCH (22:47)
[2017-12-02] MEDS: NICOTINE 14MG/24 HR PATCH.TD24 TD SCH (22:47)
[2017-12-02] MEDS: DIVALPROEX 500 MG TABLET.DR PO SCH (22:47)
[2017-12-02] MEDS: LOVASTATIN 40 MG TABLET PO SCH (22:47)
[2017-12-03] MEDS: LORazepam 0.5MG TABLET PO PRN ×3 (01:00→14:52)
[2017-12-03] MEDS: LEVOTHYROXINE 50 MCG TABLET PO SCH (05:29)
[2017-12-03 07:30] VITALS: BP 114/59
[2017-12-03] MEDS: OXYBUTYNIN CHLORIDE 5 MG TABLET PO SCH ×2 (07:54→21:45)
[2017-12-03] MEDS: ZIPRASIDONE 20MG CAPSULE PO SCH ×3 (07:55→21:46)
[2017-12-03] MEDS: ASPIRIN 81 MG TABLET EC PO SCH (07:55)
[2017-12-03] MEDS: ACETAMINOPHEN 325 MG TABLET PO PRN (10:45)
[2017-12-03 19:27] VITALS: BP 94/53
[2017-12-03] MEDS: NICOTINE 14MG/24 HR PATCH.TD24 TD SCH ×2 (21:44→21:45)
[2017-12-03 21:45] VITALS: BP 119/69
[2017-12-03] MEDS: GABAPENTIN 300 MG CAPSULE PO SCH (21:45)
[2017-12-03] MEDS: LOVASTATIN 40 MG TABLET PO SCH (21:45)
[2017-12-03] MEDS: DIVALPROEX 500 MG TABLET.DR PO SCH (21:45)
[2017-12-04] MEDS: LEVOTHYROXINE 50 MCG TABLET PO SCH (05:34)
[2017-12-04] MEDS: ACETAMINOPHEN 325 MG TABLET PO PRN (05:35)
[2017-12-04] MEDS: OXYBUTYNIN CHLORIDE 5 MG TABLET PO SCH ×2 (07:26→19:56)
[2017-12-04] MEDS: ASPIRIN 81 MG TABLET EC PO SCH (07:26)
[2017-12-04] MEDS: ZIPRASIDONE 20MG CAPSULE PO SCH ×3 (07:27→19:57)
[2017-12-04 07:34] VITALS: BP 112/72
[2017-12-04] MEDS: LORazepam 0.5MG TABLET PO PRN (16:52)
[2017-12-04] MEDS: OLANZAPINE 10 MG INJ IM PRN (18:27)
[2017-12-04 19:42] VITALS: BP 119/74
[2017-12-04] MEDS: DIVALPROEX 500 MG TABLET.DR PO SCH (19:56)
[2017-12-04] MEDS: GABAPENTIN 300 MG CAPSULE PO SCH (19:56)
[2017-12-04] MEDS: LOVASTATIN 40 MG TABLET PO SCH (19:56)
[2017-12-05] MEDS: LORazepam 0.5MG TABLET PO PRN ×3 (03:05→20:23)
[2017-12-05] MEDS: ACETAMINOPHEN 325 MG TABLET PO PRN (03:30)
[2017-12-05] MEDS: LEVOTHYROXINE 50 MCG TABLET PO SCH (05:33)
[2017-12-05 07:38] VITALS: BP 112/64
[2017-12-05] MEDS: ZIPRASIDONE 20MG CAPSULE PO SCH ×3 (08:05→20:24)
[2017-12-05] MEDS: OXYBUTYNIN CHLORIDE 5 MG TABLET PO SCH ×2 (08:05→20:23)
[2017-12-05] MEDS: ASPIRIN 81 MG TABLET EC PO SCH (08:05)
[2017-12-05] MEDS: NICOTINE 14MG/24 HR PATCH.TD24 TD SCH (17:42)
[2017-12-05] MEDS ORDERED: OLANZAPINE 10 MG INJ IM ONE (19:07)
[2017-12-05] MEDS ORDERED: OLANZAPINE 10 MG INJ IM PRN (19:30)
[2017-12-05 19:48] VITALS: BP 120/74
[2017-12-05] MEDS: LOVASTATIN 40 MG TABLET PO SCH (20:23)
[2017-12-05] MEDS: DIVALPROEX 500 MG TABLET.DR PO SCH (20:23)
[2017-12-05] MEDS: GABAPENTIN 300 MG CAPSULE PO SCH (20:24)
[2017-12-06] MEDS: LORazepam 0.5MG TABLET PO PRN ×3 (01:50→22:48)
[2017-12-06] MEDS: LEVOTHYROXINE 50 MCG TABLET PO SCH (05:44)
[2017-12-06 07:12] VITALS: BP 110/61
[2017-12-06] MEDS: ACETAMINOPHEN 325 MG TABLET PO PRN (09:11)
[2017-12-06] MEDS: OXYBUTYNIN CHLORIDE 5 MG TABLET PO SCH ×2 (09:11→19:29)
[2017-12-06] MEDS: ZIPRASIDONE 20MG CAPSULE PO SCH ×3 (09:11→19:28)
[2017-12-06] MEDS: ASPIRIN 81 MG TABLET EC PO SCH (09:11)
[2017-12-06] MEDS ORDERED: OLANZAPINE 10 MG INJ IM ONE (13:12)
[2017-12-06] MEDS ORDERED: OLANZAPINE 10 MG INJ IM PRN ×2 (13:30)
[2017-12-06 15:39] VITALS: BP 125/55
[2017-12-06] MEDS: NICOTINE 14MG/24 HR PATCH.TD24 TD SCH (19:24)
[2017-12-06 19:28] VITALS: BP 122/76
[2017-12-06] MEDS: GABAPENTIN 300 MG CAPSULE PO SCH (19:28)
[2017-12-06] MEDS: LOVASTATIN 40 MG TABLET PO SCH (19:28)
[2017-12-06] MEDS: DIVALPROEX 500 MG TABLET.DR PO SCH (19:28)
[2017-12-07] MEDS ORDERED: LORazepam 2 MG/ML, 1ML IM PRN
[2017-12-07] MEDS ORDERED: LORazepam 2 MG/ML, 1ML IM ONE (01:00)
[2017-12-07] MEDS: LEVOTHYROXINE 50 MCG TABLET PO SCH (05:14)
[2017-12-07 07:30] VITALS: BP 110/69
[2017-12-07] MEDS ORDERED: ZIPRASIDONE 40MG CAPSULE PO SCH (09:00)
[2017-12-07] MEDS: ACETAMINOPHEN 325 MG TABLET PO PRN (09:48)
[2017-12-07] MEDS: ASPIRIN 81 MG TABLET EC PO SCH (09:48)
[2017-12-07] MEDS: OXYBUTYNIN CHLORIDE 5 MG TABLET PO SCH ×2 (09:48→20:01)
[2017-12-07] MEDS: NICOTINE 14MG/24 HR PATCH.TD24 TD SCH (19:19)
[2017-12-07 19:25] VITALS: BP 138/80
[2017-12-07] MEDS: LOVASTATIN 40 MG TABLET PO SCH (20:00)
[2017-12-07] MEDS: LORazepam 0.5MG TABLET PO PRN (20:01)
[2017-12-07] MEDS: DIVALPROEX 500 MG TABLET.DR PO SCH (20:01)
[2017-12-07] MEDS: GABAPENTIN 300 MG CAPSULE PO SCH (20:01)
[2017-12-08] VITALS (10 sets, daily range): BP systolic 100–119; BP diastolic 62–77
[2017-12-08] MEDS: chlorPROMAZINE 10MG TABLET PO PRN (00:39)
[2017-12-08] MEDS: LEVOTHYROXINE 50 MCG TABLET PO SCH (04:29)
[2017-12-08] MEDS: OXYBUTYNIN CHLORIDE 5 MG TABLET PO SCH ×2 (08:16→20:16)
[2017-12-08] MEDS: ASPIRIN 81 MG TABLET EC PO SCH (08:16)
[2017-12-08] MEDS ORDERED: LORazepam 2 MG/ML, 1ML ONE (11:46)
[2017-12-08] MEDS ORDERED: LORazepam 2 MG/ML, 1ML IM ONE (12:00)
[2017-12-08] MEDS: NICOTINE 14MG/24 HR PATCH.TD24 TD SCH (18:25)
[2017-12-08] MEDS: GABAPENTIN 300 MG CAPSULE PO SCH (20:15)
[2017-12-08] MEDS: DIVALPROEX 500 MG TABLET.DR PO SCH (20:16)
[2017-12-08] MEDS: LOVASTATIN 40 MG TABLET PO SCH (20:16)
[2017-12-08] MEDS: LORazepam 0.5MG TABLET PO PRN (20:16)
[2017-12-09] MEDS: LEVOTHYROXINE 50 MCG TABLET PO SCH (05:05)
[2017-12-09 07:32] VITALS: BP 98/63
[2017-12-09] MEDS: OXYBUTYNIN CHLORIDE 5 MG TABLET PO SCH ×2 (08:45→23:59)
[2017-12-09] MEDS: ASPIRIN 81 MG TABLET EC PO SCH (08:45)
[2017-12-09 11:20] LABS: BASOPHILS # (AUTO) 0.05 x10^3/uL (0-0.1); BASOPHILS % (AUTO) 1 % (0-1); EOSINOPHILS # (AUTO) 0.35 x10^3/uL (0-0.4); EOSINOPHILS % (AUTO) 6 % (1-7); LYMPHOCYTES # (AUTO) 1.53 x10^3/uL (1-3.4); LYMPHOCYTES % (AUTO) 25 % (22-44); MD NO; MEAN CORPUSCULAR HGB CONC 33.7 g/dL (32.4-35.8); MEAN CORPUSCULAR VOLUME 83.1 fL (80-100); MONOCYTES % (AUTO) 8 % (2-9); NEUTROPHILS # (AUTO) 3.77 x10^3/uL (1.8-6.8); NEUTROPHILS % (AUTO) 61 % (42-75); PLATELET COUNT 258 x10^3/uL (130-400); RED BLOOD COUNT 4.05 x10^6/uL (3.82-5.3); RED CELL DISTRIBUTION WIDTH 21.9 % (9.6-15.2)
[2017-12-09 11:24] LABS: ALANINE AMINOTRANSFERASE 21 U/L (12-78); ALBUMIN 3.1 g/dL (3.4-5.0); ANION GAP 7 mmol/L (5-15); CALCIUM 8.4 mg/dL (8.5-10.1); CHLORIDE 107 mmol/L (98-107); CREATININE 0.85 mg/dL (0.55-1.02)
[2017-12-09 11:28] LABS: ALKALINE PHOSPHATASE 160 U/L (45-117); BILIRUBIN,TOTAL 0.2 mg/dL (0.2-1.0); TOTAL PROTEIN 6.7 g/dL (6.4-8.2)
[2017-12-09] MEDS: LORazepam 0.5MG TABLET PO PRN (14:28)
[2017-12-09] MEDS: chlorPROMAZINE 10MG TABLET PO PRN (14:29)
[2017-12-09] MEDS ORDERED: OLANZAPINE 10 MG INJ IM ONE (16:30)
[2017-12-09] MEDS: NICOTINE 14MG/24 HR PATCH.TD24 TD SCH (19:00)
[2017-12-09 19:48] VITALS: BP 108/59
[2017-12-09] MEDS ORDERED: CHLORPROMAZINE 100MG TAB PO SCH (21:00)
[2017-12-09] MEDS: GABAPENTIN 300 MG CAPSULE PO SCH (23:59)
[2017-12-09] MEDS: LOVASTATIN 40 MG TABLET PO SCH (23:59)
[2017-12-10] MEDS: LORazepam 0.5MG TABLET PO PRN ×3 (01:29→21:41)
[2017-12-10] MEDS: LEVOTHYROXINE 50 MCG TABLET PO SCH (07:57)
[2017-12-10] MEDS: OXYBUTYNIN CHLORIDE 5 MG TABLET PO SCH ×2 (07:57→21:00)
[2017-12-10] MEDS: ASPIRIN 81 MG TABLET EC PO SCH (07:58)
[2017-12-10 08:18] VITALS: BP 95/62
[2017-12-10 13:19] VITALS: BP 116/75
[2017-12-10] MEDS: CHLORPROMAZINE 100MG TAB PO SCH (16:01)
[2017-12-10] MEDS: NICOTINE 14MG/24 HR PATCH.TD24 TD SCH (19:42)
[2017-12-10] MEDS: LOVASTATIN 40 MG TABLET PO SCH (21:00)
[2017-12-10] MEDS: GABAPENTIN 300 MG CAPSULE PO SCH (21:40)
[2017-12-10] MEDS: ERGOCALCIFEROL 50,000 UNIT CAPSULE PO SCH (21:40)
[2017-12-10] MEDS: DIVALPROEX 500 MG TABLET.DR PO SCH ×2 (21:41)
[2017-12-10] MEDS: chlorPROMAZINE 10MG TABLET PO PRN (21:41)
[2017-12-11] MEDS: LORazepam 0.5MG TABLET PO PRN ×3 (03:50→23:08)
[2017-12-11] MEDS: LEVOTHYROXINE 50 MCG TABLET PO SCH ×2 (03:51→05:05)
[2017-12-11] MEDS: chlorPROMAZINE 10MG TABLET PO PRN ×3 (03:51→23:16)
[2017-12-11 07:40] VITALS: BP 107/68
[2017-12-11] MEDS: OXYBUTYNIN CHLORIDE 5 MG TABLET PO SCH ×2 (08:17→23:07)
[2017-12-11] MEDS: ASPIRIN 81 MG TABLET EC PO SCH (08:17)
[2017-12-11] MEDS: CHLORPROMAZINE 100MG TAB PO SCH (17:00)
[2017-12-11 20:05] VITALS: BP 106/67
[2017-12-11] MEDS: LOVASTATIN 40 MG TABLET PO SCH (23:07)
[2017-12-11] MEDS: GABAPENTIN 300 MG CAPSULE PO SCH (23:08)
[2017-12-11] MEDS: NICOTINE 14MG/24 HR PATCH.TD24 TD SCH (23:08)
[2017-12-11] MEDS: DIVALPROEX 500 MG TABLET.DR PO SCH (23:08)
[2017-12-12 00:55] LABS: CULTURE INDICATED? NO; MICROSCOPIC NOT IND
[2017-12-12] MEDS: LEVOTHYROXINE 50 MCG TABLET PO SCH (05:01)
[2017-12-12 07:18] VITALS: BP 102/57
[2017-12-12] MEDS: OXYBUTYNIN CHLORIDE 5 MG TABLET PO SCH ×2 (09:20→19:33)
[2017-12-12] MEDS: ASPIRIN 81 MG TABLET EC PO SCH (09:20)
[2017-12-12] MEDS: LORazepam 0.5MG TABLET PO PRN ×2 (10:42→19:33)
[2017-12-12] MEDS: CHLORPROMAZINE 100MG TAB PO SCH (17:00)
[2017-12-12] MEDS: NICOTINE 14MG/24 HR PATCH.TD24 TD SCH (19:14)
[2017-12-12] MEDS: LOVASTATIN 40 MG TABLET PO SCH (19:33)
[2017-12-12] MEDS: GABAPENTIN 300 MG CAPSULE PO SCH (19:33)
[2017-12-12 19:34] VITALS: BP 116/69
[2017-12-12] MEDS: DIVALPROEX 500 MG TABLET.DR PO SCH (19:34)
[2017-12-12] MEDS: chlorPROMAZINE 10MG TABLET PO PRN (19:34)
[2017-12-12] MEDS ORDERED: DIPHENHYDRAMINE 50 MG/ML, 1ML IM ONE (21:00)
[2017-12-13] MEDS ORDERED: ZIPRASIDONE 20 MG INJ IM ONE (00:30)
[2017-12-13] MEDS: LEVOTHYROXINE 50 MCG TABLET PO SCH (07:30)
[2017-12-13] MEDS: LEVOTHYROXINE 25 MCG TABLET PO SCH (07:42)
[2017-12-13 07:46] VITALS: BP 98/65
[2017-12-13] MEDS: ZIPRASIDONE 40MG CAPSULE PO SCH ×2 (08:19→20:29)
[2017-12-13] MEDS: OXYBUTYNIN CHLORIDE 5 MG TABLET PO SCH ×2 (08:20→20:28)
[2017-12-13] MEDS: ASPIRIN 81 MG TABLET EC PO SCH (08:20)
[2017-12-13] MEDS: ACETAMINOPHEN 325 MG TABLET PO PRN (09:22)
[2017-12-13 17:17] VITALS: BP 114/73
[2017-12-13] MEDS: NICOTINE 14MG/24 HR PATCH.TD24 TD SCH (19:43)
[2017-12-13 19:49] VITALS: BP 95/60
[2017-12-13] MEDS: GABAPENTIN 300 MG CAPSULE PO SCH (20:28)
[2017-12-13] MEDS: LORazepam 0.5MG TABLET PO PRN (20:29)
[2017-12-13] MEDS: DIVALPROEX 500 MG TABLET.DR PO SCH (20:29)
[2017-12-13] MEDS: LOVASTATIN 40 MG TABLET PO SCH (20:29)
[2017-12-14] MEDS: LORazepam 0.5MG TABLET PO PRN ×3 (03:40→19:32)
[2017-12-14] MEDS: LEVOTHYROXINE 50 MCG TABLET PO SCH (06:00)
[2017-12-14] MEDS: LEVOTHYROXINE 25 MCG TABLET PO SCH ×2 (06:19→06:20)
[2017-12-14 07:40] VITALS: BP 121/76
[2017-12-14] MEDS: ZIPRASIDONE 40MG CAPSULE PO SCH ×2 (08:09→19:32)
[2017-12-14] MEDS: ASPIRIN 81 MG TABLET EC PO SCH (08:09)
[2017-12-14] MEDS: OXYBUTYNIN CHLORIDE 5 MG TABLET PO SCH ×2 (08:10→19:32)
[2017-12-14] MEDS: NICOTINE 7 MG/24 HR PATCH.TD24 TD SCH (12:27)
[2017-12-14] MEDS: GABAPENTIN 300 MG CAPSULE PO SCH (19:32)
[2017-12-14] MEDS: DIVALPROEX 500 MG TABLET.DR PO SCH (19:32)
[2017-12-14] MEDS: LOVASTATIN 40 MG TABLET PO SCH (19:32)
[2017-12-14 19:47] VITALS: BP 131/79
[2017-12-15] MEDS: LORazepam 0.5MG TABLET PO PRN ×3 (02:33→20:01)
[2017-12-15] MEDS: LEVOTHYROXINE 50 MCG TABLET PO SCH (05:09)
[2017-12-15] MEDS: ASPIRIN 81 MG TABLET EC PO SCH (07:52)
[2017-12-15] MEDS: OXYBUTYNIN CHLORIDE 5 MG TABLET PO SCH ×2 (07:52→19:59)
[2017-12-15] MEDS: ZIPRASIDONE 40MG CAPSULE PO SCH ×2 (07:53→20:00)
[2017-12-15 07:59] VITALS: BP 103/62
[2017-12-15 08:10] VITALS: BP 105/67
[2017-12-15] MEDS: NICOTINE 7 MG/24 HR PATCH.TD24 TD SCH (12:04)
[2017-12-15 19:33] VITALS: BP 121/75
[2017-12-15] MEDS: DIVALPROEX 500 MG TABLET.DR PO SCH (19:58)
[2017-12-15] MEDS: LOVASTATIN 40 MG TABLET PO SCH (20:00)
[2017-12-15] MEDS: GABAPENTIN 300 MG CAPSULE PO SCH (20:00)
[2017-12-16] MEDS: LORazepam 0.5MG TABLET PO PRN ×2 (02:55→20:08)
[2017-12-16] MEDS: LEVOTHYROXINE 50 MCG TABLET PO SCH (05:58)
[2017-12-16 07:23] VITALS: BP 97/64
[2017-12-16] MEDS: LEVOTHYROXINE 25 MCG TABLET PO SCH (08:53)
[2017-12-16] MEDS: OXYBUTYNIN CHLORIDE 5 MG TABLET PO SCH ×2 (08:53→20:08)
[2017-12-16] MEDS: ASPIRIN 81 MG TABLET EC PO SCH (08:53)
[2017-12-16] MEDS: ZIPRASIDONE 40MG CAPSULE PO SCH ×2 (08:53→20:08)
[2017-12-16] MEDS: NICOTINE 7 MG/24 HR PATCH.TD24 TD SCH (12:45)
[2017-12-16 19:28] VITALS: BP 104/65
[2017-12-16] MEDS: GABAPENTIN 300 MG CAPSULE PO SCH (20:08)
[2017-12-16] MEDS: LOVASTATIN 40 MG TABLET PO SCH (20:08)
[2017-12-16] MEDS: DIVALPROEX 500 MG TABLET.DR PO SCH (20:09)
[2017-12-17] MEDS: LEVOTHYROXINE 50 MCG TABLET PO SCH (05:07)
[2017-12-17 07:17] VITALS: BP 125/77
[2017-12-17] MEDS: ZIPRASIDONE 40MG CAPSULE PO SCH ×2 (08:23→19:59)
[2017-12-17] MEDS: OXYBUTYNIN CHLORIDE 5 MG TABLET PO SCH ×2 (08:24→19:59)
[2017-12-17] MEDS: ASPIRIN 81 MG TABLET EC PO SCH (08:24)
[2017-12-17] MEDS: LORazepam 0.5MG TABLET PO PRN ×2 (11:12→19:54)
[2017-12-17] MEDS: NICOTINE 7 MG/24 HR PATCH.TD24 TD SCH (11:29)
[2017-12-17 19:22] VITALS: BP 112/65
[2017-12-17] MEDS: ACETAMINOPHEN 325 MG TABLET PO PRN (19:54)
[2017-12-17] MEDS: GABAPENTIN 300 MG CAPSULE PO SCH (19:59)
[2017-12-17] MEDS: ERGOCALCIFEROL 50,000 UNIT CAPSULE PO SCH (19:59)
[2017-12-17] MEDS: LOVASTATIN 40 MG TABLET PO SCH (19:59)
[2017-12-17] MEDS: DIVALPROEX 500 MG TABLET.DR PO SCH (19:59)
[2017-12-18] MEDS: LEVOTHYROXINE 50 MCG TABLET PO SCH (05:26)
[2017-12-18 07:24] VITALS: BP 100/65
[2017-12-18] MEDS: ASPIRIN 81 MG TABLET EC PO SCH (07:50)
[2017-12-18] MEDS: OXYBUTYNIN CHLORIDE 5 MG TABLET PO SCH ×2 (07:50→19:16)
[2017-12-18] MEDS: ZIPRASIDONE 40MG CAPSULE PO SCH ×2 (07:50→19:15)
[2017-12-18] MEDS: NICOTINE 7 MG/24 HR PATCH.TD24 TD SCH (11:26)
[2017-12-18] MEDS: LORazepam 0.5MG TABLET PO PRN ×2 (14:23→22:33)
[2017-12-18] MEDS: GABAPENTIN 300 MG CAPSULE PO SCH (19:16)
[2017-12-18] MEDS: LOVASTATIN 40 MG TABLET PO SCH (19:16)
[2017-12-18] MEDS: DIVALPROEX 500 MG TABLET.DR PO SCH (19:16)
[2017-12-18 19:29] VITALS: BP 100/63
[2017-12-19] MEDS: ACETAMINOPHEN 325 MG TABLET PO PRN ×2 (01:45→09:35)
[2017-12-19] MEDS: LEVOTHYROXINE 50 MCG TABLET PO SCH (05:15)
[2017-12-19] MEDS: LORazepam 0.5MG TABLET PO PRN ×2 (05:15→19:31)
[2017-12-19 07:30] VITALS: BP 116/72
[2017-12-19] MEDS: ASPIRIN 81 MG TABLET EC PO SCH (09:24)
[2017-12-19] MEDS: ZIPRASIDONE 40MG CAPSULE PO SCH ×2 (09:24→19:31)
[2017-12-19] MEDS: OXYBUTYNIN CHLORIDE 5 MG TABLET PO SCH ×2 (09:24→19:31)
[2017-12-19] MEDS: NICOTINE 7 MG/24 HR PATCH.TD24 TD SCH (13:23)
[2017-12-19 19:21] VITALS: BP 116/70
[2017-12-19] MEDS: DIVALPROEX 500 MG TABLET.DR PO SCH (19:31)
[2017-12-19] MEDS: LOVASTATIN 40 MG TABLET PO SCH (19:31)
[2017-12-19] MEDS: GABAPENTIN 300 MG CAPSULE PO SCH (19:31)
[2017-12-20] MEDS: LEVOTHYROXINE 50 MCG TABLET PO SCH (05:01)
[2017-12-20 07:30] VITALS: BP 104/66
[2017-12-20] MEDS: LEVOTHYROXINE 25 MCG TABLET PO SCH (08:45)
[2017-12-20] MEDS: ASPIRIN 81 MG TABLET EC PO SCH (08:45)
[2017-12-20] MEDS: ZIPRASIDONE 40MG CAPSULE PO SCH ×2 (08:45→19:46)
[2017-12-20] MEDS: OXYBUTYNIN CHLORIDE 5 MG TABLET PO SCH ×2 (08:45→19:45)
[2017-12-20] MEDS: NICOTINE 7 MG/24 HR PATCH.TD24 TD SCH (13:50)
[2017-12-20 19:16] VITALS: BP 100/60
[2017-12-20] MEDS: DIVALPROEX 500 MG TABLET.DR PO SCH (19:45)
[2017-12-20] MEDS: GABAPENTIN 300 MG CAPSULE PO SCH (19:46)
[2017-12-20] MEDS: LOVASTATIN 40 MG TABLET PO SCH (19:46)
[2017-12-20] MEDS: LORazepam 0.5MG TABLET PO PRN (19:46)
[2017-12-21] MEDS: LEVOTHYROXINE 50 MCG TABLET PO SCH (05:55)
[2017-12-21 07:30] VITALS: BP 105/57
[2017-12-21] MEDS: OXYBUTYNIN CHLORIDE 5 MG TABLET PO SCH ×2 (08:01→20:29)
[2017-12-21] MEDS: ASPIRIN 81 MG TABLET EC PO SCH (08:01)
[2017-12-21] MEDS: ZIPRASIDONE 40MG CAPSULE PO SCH ×2 (08:01→20:29)
[2017-12-21] MEDS: NICOTINE 7 MG/24 HR PATCH.TD24 TD SCH (13:05)
[2017-12-21 19:35] VITALS: BP 118/74
[2017-12-21] MEDS: LOVASTATIN 40 MG TABLET PO SCH (20:29)
[2017-12-21] MEDS: LORazepam 0.5MG TABLET PO PRN (20:29)
[2017-12-21] MEDS: DIVALPROEX 500 MG TABLET.DR PO SCH (20:29)
[2017-12-21] MEDS: GABAPENTIN 300 MG CAPSULE PO SCH (21:13)
[2017-12-22] MEDS: LEVOTHYROXINE 50 MCG TABLET PO SCH (06:28)
[2017-12-22 07:20] VITALS: BP 115/63
[2017-12-22] MEDS: ASPIRIN 81 MG TABLET EC PO SCH (08:25)
[2017-12-22] MEDS: ZIPRASIDONE 40MG CAPSULE PO SCH ×2 (08:25→20:03)
[2017-12-22] MEDS: OXYBUTYNIN CHLORIDE 5 MG TABLET PO SCH ×2 (08:25→20:02)
[2017-12-22] MEDS: NICOTINE 7 MG/24 HR PATCH.TD24 TD SCH (11:46)
[2017-12-22] MEDS: LORazepam 0.5MG TABLET PO PRN ×2 (11:46→20:02)
[2017-12-22] MEDS: ACETAMINOPHEN 325 MG TABLET PO PRN ×2 (12:37→20:02)
[2017-12-22 19:16] VITALS: BP 116/75
[2017-12-22] MEDS: GABAPENTIN 300 MG CAPSULE PO SCH (20:02)
[2017-12-22] MEDS: LOVASTATIN 40 MG TABLET PO SCH (20:02)
[2017-12-22] MEDS: DIVALPROEX 500 MG TABLET.DR PO SCH (20:02)
[2017-12-23] MEDS: LEVOTHYROXINE 50 MCG TABLET PO SCH (05:24)
[2017-12-23 07:48] VITALS: BP 109/61
[2017-12-23] MEDS: ASPIRIN 81 MG TABLET EC PO SCH (08:14)
[2017-12-23] MEDS: OXYBUTYNIN CHLORIDE 5 MG TABLET PO SCH ×2 (08:14→20:01)
[2017-12-23] MEDS: ZIPRASIDONE 40MG CAPSULE PO SCH ×2 (08:15→20:01)
[2017-12-23] MEDS: LEVOTHYROXINE 25 MCG TABLET PO SCH (08:17)
[2017-12-23] MEDS: NICOTINE 7 MG/24 HR PATCH.TD24 TD SCH (12:13)
[2017-12-23] MEDS: LORazepam 0.5MG TABLET PO PRN ×2 (12:14→19:26)
[2017-12-23 19:12] VITALS: BP 106/66
[2017-12-23] MEDS: DIVALPROEX 500 MG TABLET.DR PO SCH (20:00)
[2017-12-23] MEDS: LOVASTATIN 40 MG TABLET PO SCH (20:00)
[2017-12-23] MEDS: GABAPENTIN 300 MG CAPSULE PO SCH (20:01)
[2017-12-23] MEDS: ACETAMINOPHEN 325 MG TABLET PO PRN (20:01)
[2017-12-24] MEDS: LEVOTHYROXINE 50 MCG TABLET PO SCH (05:50)
[2017-12-24 07:30] VITALS: BP 114/69
[2017-12-24] MEDS: ZIPRASIDONE 40MG CAPSULE PO SCH ×2 (09:07→20:44)
[2017-12-24] MEDS: ASPIRIN 81 MG TABLET EC PO SCH (09:07)
[2017-12-24] MEDS: OXYBUTYNIN CHLORIDE 5 MG TABLET PO SCH ×2 (09:08→20:44)
[2017-12-24] MEDS: LORazepam 0.5MG TABLET PO PRN ×2 (11:08→20:45)
[2017-12-24] MEDS: NICOTINE 7 MG/24 HR PATCH.TD24 TD SCH (11:43)
[2017-12-24 19:22] VITALS: BP 108/67
[2017-12-24] MEDS: DIVALPROEX 500 MG TABLET.DR PO SCH (20:44)
[2017-12-24] MEDS: LOVASTATIN 40 MG TABLET PO SCH (20:47)
[2017-12-24] MEDS: ERGOCALCIFEROL 50,000 UNIT CAPSULE PO SCH (20:49)
[2017-12-24] MEDS: ACETAMINOPHEN 325 MG TABLET PO PRN (21:33)
[2017-12-24] MEDS: GABAPENTIN 300 MG CAPSULE PO SCH (22:23)
[2017-12-25] MEDS: LEVOTHYROXINE 50 MCG TABLET PO SCH (05:12)
[2017-12-25 07:25] VITALS: BP 108/61
[2017-12-25] MEDS: ASPIRIN 81 MG TABLET EC PO SCH (08:19)
[2017-12-25] MEDS: OXYBUTYNIN CHLORIDE 5 MG TABLET PO SCH ×2 (08:19→19:53)
[2017-12-25] MEDS: ZIPRASIDONE 40MG CAPSULE PO SCH (08:20)
[2017-12-25] MEDS: NICOTINE 7 MG/24 HR PATCH.TD24 TD SCH (12:27)
[2017-12-25] MEDS: LORazepam 0.5MG TABLET PO PRN ×2 (13:10→19:54)
[2017-12-25] MEDS: ACETAMINOPHEN 325 MG TABLET PO PRN ×2 (13:10→19:54)
[2017-12-25 19:40] VITALS: BP 102/65
[2017-12-25] MEDS: LOVASTATIN 40 MG TABLET PO SCH (19:53)
[2017-12-25] MEDS: GABAPENTIN 300 MG CAPSULE PO SCH (19:54)
[2017-12-25] MEDS: DIVALPROEX 500 MG TABLET.DR PO SCH (19:54)
[2017-12-26] MEDS: LORazepam 0.5MG TABLET PO PRN ×3 (03:51→21:50)
[2017-12-26] MEDS: LEVOTHYROXINE 50 MCG TABLET PO SCH (05:40)
[2017-12-26 09:09] VITALS: BP 111/75
[2017-12-26] MEDS: ASPIRIN 81 MG TABLET EC PO SCH (09:09)
[2017-12-26] MEDS: ZIPRASIDONE 40MG CAPSULE PO SCH (09:10)
[2017-12-26] MEDS: OXYBUTYNIN CHLORIDE 5 MG TABLET PO SCH ×2 (09:10→21:50)
[2017-12-26] MEDS: NICOTINE 7 MG/24 HR PATCH.TD24 TD SCH (11:50)
[2017-12-26] MEDS: ACETAMINOPHEN 325 MG TABLET PO PRN (18:10)
[2017-12-26 19:57] VITALS: BP 117/69
[2017-12-26] MEDS: GABAPENTIN 300 MG CAPSULE PO SCH (21:50)
[2017-12-26] MEDS: LOVASTATIN 40 MG TABLET PO SCH (21:50)
[2017-12-26] MEDS: DIVALPROEX 500 MG TABLET.DR PO SCH (21:50)
[2017-12-27] MEDS: LEVOTHYROXINE 50 MCG TABLET PO SCH (05:52)
[2017-12-27] MEDS: LEVOTHYROXINE 25 MCG TABLET PO SCH (07:13)
[2017-12-27 07:19] VITALS: BP 104/69
[2017-12-27] MEDS: ACETAMINOPHEN 325 MG TABLET PO PRN ×2 (07:20→13:00)
[2017-12-27] MEDS: ASPIRIN 81 MG TABLET EC PO SCH (08:17)
[2017-12-27] MEDS: OXYBUTYNIN CHLORIDE 5 MG TABLET PO SCH ×2 (08:18→20:00)
[2017-12-27] MEDS: ZIPRASIDONE 40MG CAPSULE PO SCH (08:18)
[2017-12-27] MEDS: NICOTINE 7 MG/24 HR PATCH.TD24 TD SCH (13:04)
[2017-12-27 19:31] VITALS: BP 121/73
[2017-12-27] MEDS: GABAPENTIN 300 MG CAPSULE PO SCH (20:00)
[2017-12-27] MEDS: DIVALPROEX 500 MG TABLET.DR PO SCH (20:01)
[2017-12-27] MEDS: LOVASTATIN 40 MG TABLET PO SCH (20:01)
[2017-12-28] MEDS: LEVOTHYROXINE 50 MCG TABLET PO SCH (06:00)
[2017-12-28 08:05] VITALS: BP 112/55
[2017-12-28] MEDS: ASPIRIN 81 MG TABLET EC PO SCH (08:34)
[2017-12-28] MEDS: OXYBUTYNIN CHLORIDE 5 MG TABLET PO SCH ×2 (08:35→19:29)
[2017-12-28] MEDS: ZIPRASIDONE 40MG CAPSULE PO SCH (08:35)
[2017-12-28] MEDS: NICOTINE 7 MG/24 HR PATCH.TD24 TD SCH (12:13)
[2017-12-28] MEDS: LORazepam 0.5MG TABLET PO PRN (19:29)
[2017-12-28] MEDS: LOVASTATIN 40 MG TABLET PO SCH (19:29)
[2017-12-28] MEDS: DIVALPROEX 500 MG TABLET.DR PO SCH (19:29)
[2017-12-28] MEDS: GABAPENTIN 300 MG CAPSULE PO SCH (19:30)
[2017-12-28 20:07] VITALS: BP 100/57
[2017-12-29] MEDS: LEVOTHYROXINE 50 MCG TABLET PO SCH (05:17)
[2017-12-29 07:44] VITALS: BP 117/74
[2017-12-29] MEDS: OXYBUTYNIN CHLORIDE 5 MG TABLET PO SCH ×2 (09:29→20:02)
[2017-12-29] MEDS: ASPIRIN 81 MG TABLET EC PO SCH (09:29)
[2017-12-29] MEDS: NICOTINE 7 MG/24 HR PATCH.TD24 TD SCH (12:44)
[2017-12-29] MEDS: ACETAMINOPHEN 325 MG TABLET PO PRN (16:09)
[2017-12-29 19:23] VITALS: BP 114/69
[2017-12-29] MEDS: DIVALPROEX 500 MG TABLET.DR PO SCH (20:01)
[2017-12-29] MEDS: LOVASTATIN 40 MG TABLET PO SCH (20:01)
[2017-12-29] MEDS: GABAPENTIN 300 MG CAPSULE PO SCH (20:01)
[2017-12-30] MEDS: LEVOTHYROXINE 50 MCG TABLET PO SCH (05:59)
[2017-12-30 07:24] VITALS: BP 108/64
[2017-12-30] MEDS: LEVOTHYROXINE 25 MCG TABLET PO SCH (08:36)
[2017-12-30] MEDS: ASPIRIN 81 MG TABLET EC PO SCH (08:36)
[2017-12-30] MEDS: OXYBUTYNIN CHLORIDE 5 MG TABLET PO SCH ×2 (08:36→20:09)
[2017-12-30] MEDS: ACETAMINOPHEN 325 MG TABLET PO PRN (08:43)
[2017-12-30] MEDS: NICOTINE 7 MG/24 HR PATCH.TD24 TD SCH (12:40)
[2017-12-30] MEDS: LORazepam 0.5MG TABLET PO PRN (20:09)
[2017-12-30] MEDS: LOVASTATIN 40 MG TABLET PO SCH (20:09)
[2017-12-30] MEDS: DIVALPROEX 500 MG TABLET.DR PO SCH (20:09)
[2017-12-30] MEDS: GABAPENTIN 300 MG CAPSULE PO SCH (20:09)
[2017-12-30 20:15] VITALS: BP 109/67
[2017-12-31] MEDS: LEVOTHYROXINE 50 MCG TABLET PO SCH (05:05)
[2017-12-31 07:40] VITALS: BP 110/73
[2017-12-31] MEDS: ASPIRIN 81 MG TABLET EC PO SCH (08:49)
[2017-12-31] MEDS: OXYBUTYNIN CHLORIDE 5 MG TABLET PO SCH ×2 (08:50→20:47)
[2017-12-31] MEDS: ACETAMINOPHEN 325 MG TABLET PO PRN (08:52)
[2017-12-31] MEDS: NICOTINE 7 MG/24 HR PATCH.TD24 TD SCH (12:53)
[2017-12-31 19:41] VITALS: BP 104/65
[2017-12-31] MEDS: LORazepam 0.5MG TABLET PO PRN (20:47)
[2017-12-31] MEDS: GABAPENTIN 300 MG CAPSULE PO SCH (20:47)
[2017-12-31] MEDS: ERGOCALCIFEROL 50,000 UNIT CAPSULE PO SCH (20:47)
[2017-12-31] MEDS: DIVALPROEX 500 MG TABLET.DR PO SCH (20:48)
[2017-12-31] MEDS: LOVASTATIN 40 MG TABLET PO SCH (20:48)
[2018-01-01] MEDS: LEVOTHYROXINE 50 MCG TABLET PO SCH (05:59)
[2018-01-01 07:33] VITALS: BP 100/66
[2018-01-01] MEDS: ACETAMINOPHEN 325 MG TABLET PO PRN (08:58)
[2018-01-01] MEDS: OXYBUTYNIN CHLORIDE 5 MG TABLET PO SCH ×2 (08:59→20:12)
[2018-01-01] MEDS: ASPIRIN 81 MG TABLET EC PO SCH (08:59)
[2018-01-01] MEDS: LORazepam 0.5MG TABLET PO PRN ×2 (12:24→20:13)
[2018-01-01] MEDS: NICOTINE 7 MG/24 HR PATCH.TD24 TD SCH (12:25)
[2018-01-01 17:22] VITALS: BP 118/68
[2018-01-01 19:27] VITALS: BP 112/65
[2018-01-01] MEDS: LOVASTATIN 40 MG TABLET PO SCH (20:12)
[2018-01-01] MEDS: DIVALPROEX 500 MG TABLET.DR PO SCH (20:12)
[2018-01-01] MEDS: GABAPENTIN 300 MG CAPSULE PO SCH (20:13)
[2018-01-02] MEDS: LEVOTHYROXINE 50 MCG TABLET PO SCH (05:12)
[2018-01-02] MEDS: ACETAMINOPHEN 325 MG TABLET PO PRN (05:14)
[2018-01-02 07:05] VITALS: BP_SYST 111; BP_SYST 124; BP_DIAS 68; BP_DIAS 83
[2018-01-02] MEDS: LORazepam 0.5MG TABLET PO PRN (08:56)
[2018-01-02] MEDS: ASPIRIN 81 MG TABLET EC PO SCH (08:56)
[2018-01-02] MEDS: OXYBUTYNIN CHLORIDE 5 MG TABLET PO SCH (08:57)
== END 2018-01-02 09:55 | DRG 57 ==
LOC: 3E 16:43
PROVIDERS: ADMIT Counselor Mental Health; ATTEND Counselor Mental Health
DX: G30.9 Alzheimer's disease, unspecified (principal); N39.0 Urinary tract infection, site not specified; F17.213 Nicotine dependence, cigarettes, with withdrawal; F02.81 Dementia in other diseases classified elsewhere, unspecified severity, with behavioral disturbance; R32 Unspecified urinary incontinence; F17.210 Nicotine dependence, cigarettes, uncomplicated; M19.90 Unspecified osteoarthritis, unspecified site; E03.9 Hypothyroidism, unspecified; E55.9 Vitamin D deficiency, unspecified; E78.00 Pure hypercholesterolemia, unspecified; E78.5 Hyperlipidemia, unspecified; F29 Unspecified psychosis not due to a substance or known physiological condition; F19.21 Other psychoactive substance dependence, in remission; F31.9 Bipolar disorder, unspecified; G89.29 Other chronic pain; R62.7 Adult failure to thrive; Z79.82 Long term (current) use of aspirin
CPT/HCPCS: 36415; 70450; 71045; 71260; 73523; 80048; 80053; 80061; 80164; 81001; 81003; 82040; 82140; 82306; 82607; 82746; 83735; 83880; 84436; 84439; 84443; 85025; 85651; 86140; 86480; 86592; 87086; 90656; 93005; 93306; 93970; J1644; J3486; Q9967; 92523-GN; G0515-GN; J1200; J2060; J7030

== ENCOUNTER 2018-08-14 17:10 | Inpatient (IN) | payer MEDICARE, MEDICAID, OTHER ==
[~2018-08-14] VITALS: Ht 160 cm; Wt 72.2 kg
[~2018-08-14 17:10] MED LIST: ALPR0.25 PO; AMLO5TAB4 PO; ASPI81TA45 PO; DIVA250T4 PO; DIVA500T2 PO; DOCU100C33 PO; DONE10TA56 PO; DULO60CA7 PO; GABA300C10 PO; LEVO50TA5 PO; LOVA40TA2 PO; OXYB15TA4 PO; OXYB5TAB7 PO; PARO20TA4 PO; POTA25TA4 PO; QUET100T4 PO; QUET25TA5 PO; TRAZ50TA66 PO; VIT D3 PO
[2018-08-14] MEDS ORDERED: POLYETHYLENE GLYCOL 17 GM PACKET PO PRN ×2 (17:30)
[2018-08-14] MEDS ORDERED: QUETIAPINE 25MG TABLET PO PRN (17:30)
[2018-08-14] MEDS ORDERED: DOCUSATE 100 MG CAPSULE PO PRN ×2 (17:30)
[2018-08-14] MEDS ORDERED: NICOTINE 14MG/24 HR PATCH.TD24 TD SCH (17:30)
[2018-08-14] MEDS ORDERED: ACETAMINOPHEN 325 MG TABLET PO PRN (17:30)
[2018-08-14] MEDS ORDERED: ONDANSETRON ODT 4 MG PO PRN ×2 (17:30)
[2018-08-14] MEDS ORDERED: BISACODYL 10 MG SUPP PR PRN ×2 (17:30)
[2018-08-14 17:59] VITALS: BP 115/62
[2018-08-14] MEDS ORDERED: DIVALPROEX 500 MG TABLET.DR PO SCH ×2 (18:00→21:00)
[2018-08-14] MEDS ORDERED: PLEASE ENTER HEIGHT AND WEIGHT MC SCH (18:30)
[2018-08-14 18:32] VITALS: BP 115/62
[2018-08-14 19:41] VITALS: BP 129/75
[2018-08-14] MEDS: LOVASTATIN 40 MG TABLET PO SCH (20:10)
[2018-08-14] MEDS: QUETIAPINE 25MG TABLET PO SCH (20:10)
[2018-08-14] MEDS: GABAPENTIN 300 MG CAPSULE PO SCH (20:10)
[2018-08-14] MEDS: TRAZODONE 50MG TABLET PO SCH (20:10)
[2018-08-14] MEDS: CEFDINIR 300 MG CAPSULE PO SCH (20:10)
[2018-08-14] MEDS ORDERED: QUETIAPINE 25MG TABLET PO SCH (21:00)
[2018-08-14] MEDS ORDERED: GABAPENTIN 300 MG CAPSULE PO SCH (21:00)
[2018-08-15] MEDS: LEVOTHYROXINE 50 MCG TABLET PO SCH (05:21)
[2018-08-15 06:24] LABS: CHOL/HDL RATIO 2.4; FREE T4 (FREE THYROXINE) 1.06 ng/dL (0.76-1.46); LDL/HDL RATIO 1.1 (0.5-3.0); THYROID STIMULATING HORMONE 3.71 mIU/L (0.358-3.740)
[2018-08-15 07:15] VITALS: BP 105/65
[2018-08-15] MEDS: OXYBUTYNIN CHLORIDE 5 MG TABLET PO SCH (08:19)
[2018-08-15] MEDS: GABAPENTIN 300 MG CAPSULE PO SCH ×2 (08:19→21:16)
[2018-08-15] MEDS: NICOTINE 7 MG/24 HR PATCH.TD24 TD SCH (08:19)
[2018-08-15] MEDS: PAROXETINE 20 MG TABLET PO SCH (08:19)
[2018-08-15] MEDS: CEFDINIR 300 MG CAPSULE PO SCH ×2 (08:19→21:16)
[2018-08-15] MEDS: ASPIRIN 81 MG TABLET EC PO SCH (08:19)
[2018-08-15] MEDS: CHOLECALCIFEROL 1,000 UNIT TABLET PO SCH (08:19)
[2018-08-15] MEDS ORDERED: POLYETHYLENE GLYCOL 17 GM PACKET PO SCH (09:00)
[2018-08-15] MEDS: DIVALPROEX 250 MG TABLET.DR PO SCH (18:17)
[2018-08-15 19:34] VITALS: BP 120/75
[2018-08-15] MEDS: TRAZODONE 50MG TABLET PO SCH (21:16)
[2018-08-15] MEDS: QUETIAPINE 25MG TABLET PO SCH (21:16)
[2018-08-15] MEDS: LOVASTATIN 40 MG TABLET PO SCH (21:42)
[2018-08-16] MEDS: LEVOTHYROXINE 50 MCG TABLET PO SCH (05:52)
[2018-08-16 07:29] VITALS: BP 129/70
[2018-08-16] MEDS: PAROXETINE 20 MG TABLET PO SCH (09:09)
[2018-08-16] MEDS: CHOLECALCIFEROL 1,000 UNIT TABLET PO SCH (09:09)
[2018-08-16] MEDS: NICOTINE 7 MG/24 HR PATCH.TD24 TD SCH (09:09)
[2018-08-16] MEDS: GABAPENTIN 300 MG CAPSULE PO SCH ×2 (09:09→20:47)
[2018-08-16] MEDS: ASPIRIN 81 MG TABLET EC PO SCH (09:09)
[2018-08-16] MEDS: CEFDINIR 300 MG CAPSULE PO SCH ×2 (09:09→20:47)
[2018-08-16] MEDS: OXYBUTYNIN CHLORIDE 5 MG TABLET PO SCH (09:09)
[2018-08-16] MEDS: DIVALPROEX 250 MG TABLET.DR PO SCH (17:17)
[2018-08-16 19:32] VITALS: BP 125/85
[2018-08-16] MEDS: LOVASTATIN 40 MG TABLET PO SCH (20:47)
[2018-08-16] MEDS: QUETIAPINE 25MG TABLET PO SCH (20:48)
[2018-08-16] MEDS: TRAZODONE 50MG TABLET PO SCH (20:48)
[2018-08-16] MEDS ORDERED: LORazepam 1MG TABLET PO ONE (22:00)
[2018-08-17] MEDS: LEVOTHYROXINE 50 MCG TABLET PO SCH (06:09)
[2018-08-17 07:19] VITALS: BP 104/61
[2018-08-17] MEDS: NICOTINE 7 MG/24 HR PATCH.TD24 TD SCH (09:01)
[2018-08-17] MEDS: OXYBUTYNIN CHLORIDE 5 MG TABLET PO SCH (09:02)
[2018-08-17] MEDS: GABAPENTIN 300 MG CAPSULE PO SCH ×2 (09:02→20:42)
[2018-08-17] MEDS: PAROXETINE 20 MG TABLET PO SCH (09:02)
[2018-08-17] MEDS: ASPIRIN 81 MG TABLET EC PO SCH (09:02)
[2018-08-17] MEDS: CHOLECALCIFEROL 1,000 UNIT TABLET PO SCH (09:02)
[2018-08-17] MEDS: DIVALPROEX 250 MG TABLET.DR PO SCH ×2 (15:25→20:44)
[2018-08-17] MEDS ORDERED: LORazepam 0.5MG TABLET PO ONE (15:30)
[2018-08-17 19:35] VITALS: BP 99/64
[2018-08-17] MEDS: TRAZODONE 50MG TABLET PO SCH (20:42)
[2018-08-17] MEDS: QUETIAPINE 25MG TABLET PO SCH (20:43)
[2018-08-17] MEDS: LOVASTATIN 40 MG TABLET PO SCH (20:43)
[2018-08-18] MEDS: LEVOTHYROXINE 50 MCG TABLET PO SCH (05:41)
[2018-08-18 07:21] VITALS: BP 134/77
[2018-08-18] MEDS: ASPIRIN 81 MG TABLET EC PO SCH (08:50)
[2018-08-18] MEDS: NICOTINE 7 MG/24 HR PATCH.TD24 TD SCH (08:50)
[2018-08-18] MEDS: GABAPENTIN 300 MG CAPSULE PO SCH ×2 (08:50→20:21)
[2018-08-18] MEDS: OXYBUTYNIN CHLORIDE 5 MG TABLET PO SCH (08:50)
[2018-08-18] MEDS: CHOLECALCIFEROL 1,000 UNIT TABLET PO SCH (08:50)
[2018-08-18] MEDS: PAROXETINE 20 MG TABLET PO SCH (08:50)
[2018-08-18] MEDS: DIVALPROEX 250 MG TABLET.DR PO SCH (16:56)
[2018-08-18 19:37] VITALS: BP 113/71
[2018-08-18] MEDS: TRAZODONE 50MG TABLET PO SCH (20:20)
[2018-08-18] MEDS: QUETIAPINE 25MG TABLET PO SCH (20:21)
[2018-08-18] MEDS: LOVASTATIN 40 MG TABLET PO SCH (20:21)
[2018-08-19] MEDS: LEVOTHYROXINE 50 MCG TABLET PO SCH (05:33)
[2018-08-19 07:29] VITALS: BP 132/82
[2018-08-19] MEDS: NICOTINE 7 MG/24 HR PATCH.TD24 TD SCH (08:51)
[2018-08-19] MEDS: CHOLECALCIFEROL 1,000 UNIT TABLET PO SCH (08:52)
[2018-08-19] MEDS: PAROXETINE 20 MG TABLET PO SCH (08:52)
[2018-08-19] MEDS: ASPIRIN 81 MG TABLET EC PO SCH (08:52)
[2018-08-19] MEDS: OXYBUTYNIN CHLORIDE 5 MG TABLET PO SCH (08:52)
[2018-08-19] MEDS: GABAPENTIN 300 MG CAPSULE PO SCH ×2 (08:52→20:27)
[2018-08-19] MEDS: DIVALPROEX 250 MG TABLET.DR PO SCH (17:02)
[2018-08-19 19:34] VITALS: BP 93/57
[2018-08-19] MEDS: LOVASTATIN 40 MG TABLET PO SCH (20:27)
[2018-08-19] MEDS: TRAZODONE 50MG TABLET PO SCH (20:27)
[2018-08-19] MEDS: QUETIAPINE 25MG TABLET PO SCH (20:27)
[2018-08-20] MEDS: LEVOTHYROXINE 50 MCG TABLET PO SCH (06:26)
[2018-08-20 07:10] VITALS: BP 149/85
[2018-08-20] MEDS: ASPIRIN 81 MG TABLET EC PO SCH (09:33)
[2018-08-20] MEDS: GABAPENTIN 300 MG CAPSULE PO SCH ×2 (09:33→20:06)
[2018-08-20] MEDS: OXYBUTYNIN CHLORIDE 5 MG TABLET PO SCH (09:33)
[2018-08-20] MEDS: CHOLECALCIFEROL 1,000 UNIT TABLET PO SCH (09:33)
[2018-08-20] MEDS: PAROXETINE 20 MG TABLET PO SCH (09:33)
[2018-08-20] MEDS: NICOTINE 7 MG/24 HR PATCH.TD24 TD SCH (09:38)
[2018-08-20] MEDS: DIVALPROEX 250 MG TABLET.DR PO SCH (17:15)
[2018-08-20 19:40] VITALS: BP 96/60
[2018-08-20] MEDS: QUETIAPINE 25MG TABLET PO SCH (20:06)
[2018-08-20] MEDS: LOVASTATIN 40 MG TABLET PO SCH (20:06)
[2018-08-20] MEDS: TRAZODONE 50MG TABLET PO SCH (20:06)
[2018-08-21] MEDS ORDERED: HALOPERIDOL 5 MG TABLET PO ONE (03:30)
[2018-08-21] MEDS: LEVOTHYROXINE 50 MCG TABLET PO SCH (06:02)
[2018-08-21 07:15] VITALS: BP 129/87
[2018-08-21] MEDS: GABAPENTIN 300 MG CAPSULE PO SCH ×2 (09:10→19:38)
[2018-08-21] MEDS: CHOLECALCIFEROL 1,000 UNIT TABLET PO SCH (09:10)
[2018-08-21] MEDS: OXYBUTYNIN CHLORIDE 5 MG TABLET PO SCH (09:10)
[2018-08-21] MEDS: ASPIRIN 81 MG TABLET EC PO SCH (09:10)
[2018-08-21] MEDS: PAROXETINE 20 MG TABLET PO SCH (09:11)
[2018-08-21] MEDS: NICOTINE 7 MG/24 HR PATCH.TD24 TD SCH (09:18)
[2018-08-21] MEDS: DIVALPROEX 250 MG TABLET.DR PO SCH (18:41)
[2018-08-21] MEDS: QUETIAPINE 25MG TABLET PO SCH (19:39)
[2018-08-21] MEDS: LOVASTATIN 40 MG TABLET PO SCH (19:39)
[2018-08-21 19:53] VITALS: BP 107/67
[2018-08-21] MEDS ORDERED: ZOLPIDEM 5MG TABLET PO SCH (21:00)
[2018-08-21] MEDS ORDERED: DIAZEPAM 5 MG/ML, 2ML IM ONE (22:30)
[2018-08-22] MEDS: LEVOTHYROXINE 50 MCG TABLET PO SCH (06:07)
[2018-08-22 07:10] VITALS: BP 126/77
[2018-08-22] MEDS: NICOTINE 7 MG/24 HR PATCH.TD24 TD SCH (08:56)
[2018-08-22] MEDS: PAROXETINE 20 MG TABLET PO SCH (08:56)
[2018-08-22] MEDS: GABAPENTIN 300 MG CAPSULE PO SCH ×2 (08:56→20:37)
[2018-08-22] MEDS: OXYBUTYNIN CHLORIDE 5 MG TABLET PO SCH (08:56)
[2018-08-22] MEDS: ASPIRIN 81 MG TABLET EC PO SCH (08:56)
[2018-08-22] MEDS: CHOLECALCIFEROL 1,000 UNIT TABLET PO SCH (08:56)
[2018-08-22] MEDS: DIVALPROEX 250 MG TABLET.DR PO SCH (17:35)
[2018-08-22 19:28] VITALS: BP 143/73
[2018-08-22] MEDS: LOVASTATIN 40 MG TABLET PO SCH (20:37)
[2018-08-22] MEDS: QUETIAPINE 200 MG TABLET PO SCH (20:37)
[2018-08-22] MEDS: DIAZEPAM 5 MG TABLET PO SCH (20:38)
[2018-08-23] MEDS: LEVOTHYROXINE 50 MCG TABLET PO SCH (05:46)
[2018-08-23 07:45] VITALS: BP 98/61
[2018-08-23] MEDS: ASPIRIN 81 MG TABLET EC PO SCH (08:30)
[2018-08-23] MEDS: PAROXETINE 20 MG TABLET PO SCH (08:30)
[2018-08-23] MEDS: OXYBUTYNIN CHLORIDE 5 MG TABLET PO SCH (08:30)
[2018-08-23] MEDS: CHOLECALCIFEROL 1,000 UNIT TABLET PO SCH (08:30)
[2018-08-23] MEDS: GABAPENTIN 300 MG CAPSULE PO SCH ×2 (08:30→19:55)
[2018-08-23] MEDS: NICOTINE 7 MG/24 HR PATCH.TD24 TD SCH (08:31)
[2018-08-23] MEDS: DIVALPROEX 250 MG TABLET.DR PO SCH (18:30)
[2018-08-23 19:35] VITALS: BP 131/79
[2018-08-23] MEDS: QUETIAPINE 200 MG TABLET PO SCH (19:55)
[2018-08-23] MEDS: DIAZEPAM 5 MG TABLET PO SCH (19:55)
[2018-08-23] MEDS: LOVASTATIN 40 MG TABLET PO SCH (19:55)
[2018-08-24] MEDS: LEVOTHYROXINE 50 MCG TABLET PO SCH (05:54)
[2018-08-24 07:19] VITALS: BP 104/60
[2018-08-24] MEDS: CHOLECALCIFEROL 1,000 UNIT TABLET PO SCH (08:43)
[2018-08-24] MEDS: GABAPENTIN 300 MG CAPSULE PO SCH ×2 (08:43→20:03)
[2018-08-24] MEDS: ASPIRIN 81 MG TABLET EC PO SCH (08:43)
[2018-08-24] MEDS: OXYBUTYNIN CHLORIDE 5 MG TABLET PO SCH (08:44)
[2018-08-24] MEDS: PAROXETINE 20 MG TABLET PO SCH (08:44)
[2018-08-24] MEDS: ACETAMINOPHEN 325 MG TABLET PO PRN (08:50)
[2018-08-24] MEDS: NICOTINE 7 MG/24 HR PATCH.TD24 TD SCH (08:50)
[2018-08-24] MEDS: DIVALPROEX 250 MG TABLET.DR PO SCH (17:07)
[2018-08-24 19:33] VITALS: BP 106/67
[2018-08-24] MEDS: LOVASTATIN 40 MG TABLET PO SCH (20:03)
[2018-08-24] MEDS: DIAZEPAM 5 MG TABLET PO SCH (20:03)
[2018-08-24] MEDS: QUETIAPINE 200 MG TABLET PO SCH (20:03)
[2018-08-25] MEDS: LEVOTHYROXINE 50 MCG TABLET PO SCH (05:56)
[2018-08-25 07:27] VITALS: BP 101/62
[2018-08-25] MEDS: OXYBUTYNIN CHLORIDE 5 MG TABLET PO SCH (08:53)
[2018-08-25] MEDS: CHOLECALCIFEROL 1,000 UNIT TABLET PO SCH (08:53)
[2018-08-25] MEDS: GABAPENTIN 300 MG CAPSULE PO SCH ×2 (08:53→20:07)
[2018-08-25] MEDS: PAROXETINE 20 MG TABLET PO SCH (08:53)
[2018-08-25] MEDS: ASPIRIN 81 MG TABLET EC PO SCH (08:53)
[2018-08-25] MEDS: NICOTINE 7 MG/24 HR PATCH.TD24 TD SCH (08:53)
[2018-08-25] MEDS: DIVALPROEX 250 MG TABLET.DR PO SCH (17:42)
[2018-08-25 19:16] VITALS: BP 136/84
[2018-08-25] MEDS: QUETIAPINE 200 MG TABLET PO SCH (20:06)
[2018-08-25] MEDS: LOVASTATIN 40 MG TABLET PO SCH (20:06)
[2018-08-25] MEDS: DIAZEPAM 5 MG TABLET PO SCH (20:06)
[2018-08-26] MEDS: LEVOTHYROXINE 50 MCG TABLET PO SCH (05:17)
[2018-08-26 07:05] VITALS: BP_SYST 120; BP_SYST 130; BP_DIAS 78; BP_DIAS 85
[2018-08-26] MEDS: CHOLECALCIFEROL 1,000 UNIT TABLET PO SCH (08:35)
[2018-08-26] MEDS: GABAPENTIN 300 MG CAPSULE PO SCH ×2 (08:35→20:27)
[2018-08-26] MEDS: ASPIRIN 81 MG TABLET EC PO SCH (08:36)
[2018-08-26] MEDS: PAROXETINE 20 MG TABLET PO SCH (08:36)
[2018-08-26] MEDS: OXYBUTYNIN CHLORIDE 5 MG TABLET PO SCH (08:36)
[2018-08-26] MEDS: NICOTINE 7 MG/24 HR PATCH.TD24 TD SCH (08:36)
[2018-08-26] MEDS ORDERED: ZIPRASIDONE 20 MG INJ IM ONE ×2 (17:30)
[2018-08-26] MEDS: DIVALPROEX 250 MG TABLET.DR PO SCH (17:48)
[2018-08-26 19:22] VITALS: BP 115/62
[2018-08-26] MEDS: QUETIAPINE 100MG TABLET PO SCH (20:26)
[2018-08-26] MEDS: LOVASTATIN 40 MG TABLET PO SCH (20:27)
[2018-08-26] MEDS: DIAZEPAM 5 MG TABLET PO SCH (20:27)
[2018-08-27] MEDS: LEVOTHYROXINE 50 MCG TABLET PO SCH (05:38)
[2018-08-27 07:05] VITALS: BP 146/83
[2018-08-27] MEDS: CHOLECALCIFEROL 1,000 UNIT TABLET PO SCH (08:45)
[2018-08-27] MEDS: GABAPENTIN 300 MG CAPSULE PO SCH ×2 (08:45→20:06)
[2018-08-27] MEDS: ASPIRIN 81 MG TABLET EC PO SCH (08:45)
[2018-08-27] MEDS: PAROXETINE 20 MG TABLET PO SCH (08:45)
[2018-08-27] MEDS: OXYBUTYNIN CHLORIDE 5 MG TABLET PO SCH (08:45)
[2018-08-27] MEDS: NICOTINE 7 MG/24 HR PATCH.TD24 TD SCH (08:46)
[2018-08-27] MEDS: DIVALPROEX 250 MG TABLET.DR PO SCH (17:09)
[2018-08-27 19:36] VITALS: BP 145/88
[2018-08-27] MEDS: QUETIAPINE 100MG TABLET PO SCH (20:06)
[2018-08-27] MEDS: DIAZEPAM 5 MG TABLET PO SCH (20:06)
[2018-08-27] MEDS: LOVASTATIN 40 MG TABLET PO SCH (20:06)
[2018-08-28] MEDS: LEVOTHYROXINE 50 MCG TABLET PO SCH (05:33)
[2018-08-28 07:15] VITALS: BP 108/69
[2018-08-28] MEDS: NICOTINE 7 MG/24 HR PATCH.TD24 TD SCH (08:29)
[2018-08-28] MEDS: OXYBUTYNIN CHLORIDE 5 MG TABLET PO SCH (08:29)
[2018-08-28] MEDS: GABAPENTIN 300 MG CAPSULE PO SCH ×2 (08:29→20:25)
[2018-08-28] MEDS: ASPIRIN 81 MG TABLET EC PO SCH (08:29)
[2018-08-28] MEDS: CHOLECALCIFEROL 1,000 UNIT TABLET PO SCH (08:29)
[2018-08-28] MEDS: PAROXETINE 20 MG TABLET PO SCH (08:29)
[2018-08-28] MEDS: QUETIAPINE 25MG TABLET PO SCH ×2 (15:15→20:29)
[2018-08-28] MEDS: DIVALPROEX 250 MG TABLET.DR PO SCH (18:15)
[2018-08-28 19:58] VITALS: BP 167/71
[2018-08-28] MEDS: LOVASTATIN 40 MG TABLET PO SCH (20:25)
[2018-08-28] MEDS: QUETIAPINE 100MG TABLET PO SCH (20:26)
[2018-08-28] MEDS: DIAZEPAM 5 MG TABLET PO SCH (20:26)
[2018-08-29] MEDS: LEVOTHYROXINE 50 MCG TABLET PO SCH (05:24)
[2018-08-29 06:59] VITALS: BP 126/79
[2018-08-29] MEDS: CHOLECALCIFEROL 1,000 UNIT TABLET PO SCH (09:00)
[2018-08-29] MEDS: OXYBUTYNIN CHLORIDE 5 MG TABLET PO SCH (09:26)
[2018-08-29] MEDS: ASPIRIN 81 MG TABLET EC PO SCH (09:26)
[2018-08-29] MEDS: GABAPENTIN 300 MG CAPSULE PO SCH ×2 (09:26→20:09)
[2018-08-29] MEDS: QUETIAPINE 25MG TABLET PO SCH ×2 (09:27→15:15)
[2018-08-29] MEDS: PAROXETINE 20 MG TABLET PO SCH (09:27)
[2018-08-29] MEDS: NICOTINE 7 MG/24 HR PATCH.TD24 TD SCH (09:27)
[2018-08-29] MEDS: DIVALPROEX 250 MG TABLET.DR PO SCH (16:13)
[2018-08-29 19:49] VITALS: BP 145/82
[2018-08-29] MEDS: DIAZEPAM 5 MG TABLET PO SCH (20:09)
[2018-08-29] MEDS: LOVASTATIN 40 MG TABLET PO SCH (20:09)
[2018-08-30] MEDS: LEVOTHYROXINE 50 MCG TABLET PO SCH (06:04)
[2018-08-30 07:15] VITALS: BP 108/70
[2018-08-30] MEDS: PAROXETINE 20 MG TABLET PO SCH (09:00)
[2018-08-30] MEDS: NICOTINE 7 MG/24 HR PATCH.TD24 TD SCH (09:00)
[2018-08-30] MEDS: CHOLECALCIFEROL 1,000 UNIT TABLET PO SCH (09:00)
[2018-08-30] MEDS: ACETAMINOPHEN 325 MG TABLET PO PRN (09:00)
[2018-08-30] MEDS: OXYBUTYNIN CHLORIDE 5 MG TABLET PO SCH (09:00)
[2018-08-30] MEDS: GABAPENTIN 300 MG CAPSULE PO SCH ×2 (09:00→20:33)
[2018-08-30] MEDS: ASPIRIN 81 MG TABLET EC PO SCH (09:00)
[2018-08-30] MEDS: DIVALPROEX 250 MG TABLET.DR PO SCH (12:19)
[2018-08-30 19:57] VITALS: BP 120/72
[2018-08-30] MEDS: LOVASTATIN 40 MG TABLET PO SCH (20:34)
[2018-08-30] MEDS: DIAZEPAM 5 MG TABLET PO SCH (20:34)
[2018-08-31] MEDS: LEVOTHYROXINE 50 MCG TABLET PO SCH (05:09)
[2018-08-31 07:10] VITALS: BP 115/69
[2018-08-31] MEDS: NICOTINE 7 MG/24 HR PATCH.TD24 TD SCH (08:45)
[2018-08-31] MEDS: CHOLECALCIFEROL 1,000 UNIT TABLET PO SCH (08:45)
[2018-08-31] MEDS: GABAPENTIN 300 MG CAPSULE PO SCH ×2 (08:46→19:58)
[2018-08-31] MEDS: OXYBUTYNIN CHLORIDE 5 MG TABLET PO SCH (08:46)
[2018-08-31] MEDS: ASPIRIN 81 MG TABLET EC PO SCH (08:46)
[2018-08-31] MEDS: PAROXETINE 20 MG TABLET PO SCH (08:46)
[2018-08-31] MEDS: DIVALPROEX 250 MG TABLET.DR PO SCH (11:29)
[2018-08-31] MEDS: ACETAMINOPHEN 325 MG TABLET PO PRN (15:43)
[2018-08-31 19:50] VITALS: BP 116/75
[2018-08-31] MEDS: DIAZEPAM 5 MG TABLET PO SCH (19:58)
[2018-08-31] MEDS: LOVASTATIN 40 MG TABLET PO SCH (19:58)
[2018-09-01] MEDS: LEVOTHYROXINE 50 MCG TABLET PO SCH (05:18)
[2018-09-01 07:24] VITALS: BP 105/65
[2018-09-01] MEDS: NICOTINE 7 MG/24 HR PATCH.TD24 TD SCH (09:00)
[2018-09-01] MEDS: ASPIRIN 81 MG TABLET EC PO SCH (09:00)
[2018-09-01] MEDS: CHOLECALCIFEROL 1,000 UNIT TABLET PO SCH (09:00)
[2018-09-01] MEDS: ACETAMINOPHEN 325 MG TABLET PO PRN (09:00)
[2018-09-01] MEDS: OXYBUTYNIN CHLORIDE 5 MG TABLET PO SCH (09:01)
[2018-09-01] MEDS: GABAPENTIN 300 MG CAPSULE PO SCH ×2 (09:01→20:45)
[2018-09-01] MEDS: PAROXETINE 20 MG TABLET PO SCH (09:01)
[2018-09-01] MEDS: DIVALPROEX 250 MG TABLET.DR PO SCH (12:02)
[2018-09-01 19:37] VITALS: BP 109/67
[2018-09-01] MEDS: LOVASTATIN 40 MG TABLET PO SCH (20:45)
[2018-09-01] MEDS: DIAZEPAM 5 MG TABLET PO SCH (20:45)
[2018-09-02] MEDS: LEVOTHYROXINE 50 MCG TABLET PO SCH (05:12)
[2018-09-02 07:05] VITALS: BP 117/71
[2018-09-02] MEDS: GABAPENTIN 300 MG CAPSULE PO SCH ×2 (08:59→20:05)
[2018-09-02] MEDS: OXYBUTYNIN CHLORIDE 5 MG TABLET PO SCH (08:59)
[2018-09-02] MEDS: PAROXETINE 20 MG TABLET PO SCH (09:00)
[2018-09-02] MEDS: ASPIRIN 81 MG TABLET EC PO SCH (09:00)
[2018-09-02] MEDS: CHOLECALCIFEROL 1,000 UNIT TABLET PO SCH (09:00)
[2018-09-02] MEDS: NICOTINE 7 MG/24 HR PATCH.TD24 TD SCH (09:00)
[2018-09-02] MEDS: DIVALPROEX 250 MG TABLET.DR PO SCH (11:50)
[2018-09-02] MEDS: ACETAMINOPHEN 325 MG TABLET PO PRN (15:25)
[2018-09-02 19:24] VITALS: BP 126/78
[2018-09-02] MEDS: DIAZEPAM 5 MG TABLET PO SCH (20:05)
[2018-09-02] MEDS: LOVASTATIN 40 MG TABLET PO SCH (20:05)
[2018-09-03] MEDS: LEVOTHYROXINE 50 MCG TABLET PO SCH (06:11)
[2018-09-03 07:15] VITALS: BP 146/65
[2018-09-03] MEDS: PAROXETINE 20 MG TABLET PO SCH (08:43)
[2018-09-03] MEDS: ASPIRIN 81 MG TABLET EC PO SCH (08:43)
[2018-09-03] MEDS: CHOLECALCIFEROL 1,000 UNIT TABLET PO SCH (08:43)
[2018-09-03] MEDS: OXYBUTYNIN CHLORIDE 5 MG TABLET PO SCH (08:43)
[2018-09-03] MEDS: GABAPENTIN 300 MG CAPSULE PO SCH ×2 (08:44→20:57)
[2018-09-03] MEDS: NICOTINE 7 MG/24 HR PATCH.TD24 TD SCH (08:48)
[2018-09-03] MEDS: DIVALPROEX 250 MG TABLET.DR PO SCH (13:02)
[2018-09-03 19:54] VITALS: BP 105/69
[2018-09-03] MEDS: LOVASTATIN 40 MG TABLET PO SCH (20:57)
[2018-09-03] MEDS: DIAZEPAM 5 MG TABLET PO SCH (21:02)
[2018-09-04] MEDS: LEVOTHYROXINE 50 MCG TABLET PO SCH (06:06)
[2018-09-04 07:11] VITALS: BP 104/65
[2018-09-04] MEDS: ASPIRIN 81 MG TABLET EC PO SCH (09:00)
[2018-09-04] MEDS: GABAPENTIN 300 MG CAPSULE PO SCH ×2 (09:00→20:35)
[2018-09-04] MEDS: NICOTINE 7 MG/24 HR PATCH.TD24 TD SCH (09:00)
[2018-09-04] MEDS: ACETAMINOPHEN 325 MG TABLET PO PRN (09:00)
[2018-09-04] MEDS: CHOLECALCIFEROL 1,000 UNIT TABLET PO SCH (09:00)
[2018-09-04] MEDS: PAROXETINE 20 MG TABLET PO SCH (09:00)
[2018-09-04] MEDS: OXYBUTYNIN CHLORIDE 5 MG TABLET PO SCH (09:00)
[2018-09-04] MEDS: DIVALPROEX 250 MG TABLET.DR PO SCH (12:40)
[2018-09-04 20:00] VITALS: BP 118/75
[2018-09-04] MEDS: DIAZEPAM 5 MG TABLET PO SCH (20:35)
[2018-09-04] MEDS: LOVASTATIN 40 MG TABLET PO SCH (20:35)
[2018-09-05] MEDS: LEVOTHYROXINE 50 MCG TABLET PO SCH (05:12)
[2018-09-05 07:23] VITALS: BP 128/85
[2018-09-05] MEDS: CHOLECALCIFEROL 1,000 UNIT TABLET PO SCH (08:44)
[2018-09-05] MEDS: ASPIRIN 81 MG TABLET EC PO SCH (08:46)
[2018-09-05] MEDS: GABAPENTIN 300 MG CAPSULE PO SCH ×2 (08:46→20:27)
[2018-09-05] MEDS: OXYBUTYNIN CHLORIDE 5 MG TABLET PO SCH (08:46)
[2018-09-05] MEDS: PAROXETINE 20 MG TABLET PO SCH (08:46)
[2018-09-05] MEDS: NICOTINE 7 MG/24 HR PATCH.TD24 TD SCH (08:47)
[2018-09-05] MEDS: ACETAMINOPHEN 325 MG TABLET PO PRN (10:35)
[2018-09-05] MEDS: DIVALPROEX 250 MG TABLET.DR PO SCH (13:00)
[2018-09-05 19:58] VITALS: BP 114/69
[2018-09-05] MEDS: DIAZEPAM 5 MG TABLET PO SCH (20:27)
[2018-09-05] MEDS: LOVASTATIN 40 MG TABLET PO SCH (20:27)
[2018-09-06] MEDS: LEVOTHYROXINE 50 MCG TABLET PO SCH (05:56)
[2018-09-06 07:20] VITALS: BP 131/81
[2018-09-06] MEDS: ASPIRIN 81 MG TABLET EC PO SCH (08:49)
[2018-09-06] MEDS: GABAPENTIN 300 MG CAPSULE PO SCH ×2 (08:49→20:38)
[2018-09-06] MEDS: PAROXETINE 20 MG TABLET PO SCH (08:49)
[2018-09-06] MEDS: OXYBUTYNIN CHLORIDE 5 MG TABLET PO SCH (08:49)
[2018-09-06] MEDS: CHOLECALCIFEROL 1,000 UNIT TABLET PO SCH (08:50)
[2018-09-06] MEDS: NICOTINE 7 MG/24 HR PATCH.TD24 TD SCH (08:50)
[2018-09-06] MEDS: ACETAMINOPHEN 325 MG TABLET PO PRN ×2 (08:50→20:39)
[2018-09-06] MEDS: DIVALPROEX 250 MG TABLET.DR PO SCH (13:09)
[2018-09-06 20:00] VITALS: BP 126/78
[2018-09-06] MEDS: DIAZEPAM 5 MG TABLET PO SCH (20:38)
[2018-09-06] MEDS: LOVASTATIN 40 MG TABLET PO SCH (20:39)
[2018-09-07] MEDS: LEVOTHYROXINE 50 MCG TABLET PO SCH (05:17)
[2018-09-07 07:16] VITALS: BP 105/65
[2018-09-07] MEDS: ASPIRIN 81 MG TABLET EC PO SCH (08:25)
[2018-09-07] MEDS: OXYBUTYNIN CHLORIDE 5 MG TABLET PO SCH (08:25)
[2018-09-07] MEDS: GABAPENTIN 300 MG CAPSULE PO SCH ×2 (08:25→20:41)
[2018-09-07] MEDS: CHOLECALCIFEROL 1,000 UNIT TABLET PO SCH (08:26)
[2018-09-07] MEDS: ACETAMINOPHEN 325 MG TABLET PO PRN (08:26)
[2018-09-07] MEDS: NICOTINE 7 MG/24 HR PATCH.TD24 TD SCH (08:26)
[2018-09-07] MEDS: PAROXETINE 20 MG TABLET PO SCH (08:26)
[2018-09-07] MEDS: DIVALPROEX 250 MG TABLET.DR PO SCH (12:17)
[2018-09-07 19:55] VITALS: BP 100/63
[2018-09-07] MEDS: LOVASTATIN 40 MG TABLET PO SCH (20:41)
[2018-09-07] MEDS: DIAZEPAM 5 MG TABLET PO SCH (20:41)
[2018-09-08] MEDS: LEVOTHYROXINE 50 MCG TABLET PO SCH (05:36)
[2018-09-08 07:00] VITALS: BP 121/77
[2018-09-08] MEDS: PAROXETINE 20 MG TABLET PO SCH (08:20)
[2018-09-08] MEDS: GABAPENTIN 300 MG CAPSULE PO SCH ×2 (08:20→20:35)
[2018-09-08] MEDS: ASPIRIN 81 MG TABLET EC PO SCH (08:20)
[2018-09-08] MEDS: NICOTINE 7 MG/24 HR PATCH.TD24 TD SCH (08:20)
[2018-09-08] MEDS: OXYBUTYNIN CHLORIDE 5 MG TABLET PO SCH (08:20)
[2018-09-08] MEDS: CHOLECALCIFEROL 1,000 UNIT TABLET PO SCH (08:20)
[2018-09-08] MEDS: DIVALPROEX 250 MG TABLET.DR PO SCH (12:29)
[2018-09-08 19:28] VITALS: BP 101/68
[2018-09-08] MEDS: DIAZEPAM 5 MG TABLET PO SCH (20:35)
[2018-09-08] MEDS: LOVASTATIN 40 MG TABLET PO SCH (20:35)
[2018-09-09] MEDS: LEVOTHYROXINE 50 MCG TABLET PO SCH (05:28)
[2018-09-09 07:30] VITALS: BP 113/76
[2018-09-09] MEDS: PAROXETINE 20 MG TABLET PO SCH (08:22)
[2018-09-09] MEDS: ACETAMINOPHEN 325 MG TABLET PO PRN ×2 (08:22→15:01)
[2018-09-09] MEDS: CHOLECALCIFEROL 1,000 UNIT TABLET PO SCH (08:22)
[2018-09-09] MEDS: GABAPENTIN 300 MG CAPSULE PO SCH ×2 (08:22→20:25)
[2018-09-09] MEDS: ASPIRIN 81 MG TABLET EC PO SCH (08:22)
[2018-09-09] MEDS: OXYBUTYNIN CHLORIDE 5 MG TABLET PO SCH (08:23)
[2018-09-09] MEDS: NICOTINE 7 MG/24 HR PATCH.TD24 TD SCH (08:23)
[2018-09-09] MEDS: DIVALPROEX 250 MG TABLET.DR PO SCH (12:27)
[2018-09-09 20:00] VITALS: BP 99/63
[2018-09-09] MEDS: LOVASTATIN 40 MG TABLET PO SCH (20:25)
[2018-09-09] MEDS: DIAZEPAM 5 MG TABLET PO SCH (20:25)
[2018-09-10] MEDS: LEVOTHYROXINE 50 MCG TABLET PO SCH (05:35)
[2018-09-10 07:15] VITALS: BP 104/68
[2018-09-10] MEDS: ASPIRIN 81 MG TABLET EC PO SCH (08:56)
[2018-09-10] MEDS: PAROXETINE 20 MG TABLET PO SCH (08:56)
[2018-09-10] MEDS: CHOLECALCIFEROL 1,000 UNIT TABLET PO SCH (08:56)
[2018-09-10] MEDS: ACETAMINOPHEN 325 MG TABLET PO PRN (08:56)
[2018-09-10] MEDS: OXYBUTYNIN CHLORIDE 5 MG TABLET PO SCH (08:56)
[2018-09-10] MEDS: GABAPENTIN 300 MG CAPSULE PO SCH ×2 (08:57→20:17)
[2018-09-10] MEDS: NICOTINE 7 MG/24 HR PATCH.TD24 TD SCH (08:59)
[2018-09-10] MEDS: DIVALPROEX 250 MG TABLET.DR PO SCH (11:06)
[2018-09-10 19:40] VITALS: BP 111/72
[2018-09-10] MEDS: DIAZEPAM 5 MG TABLET PO SCH (20:17)
[2018-09-10] MEDS: LOVASTATIN 40 MG TABLET PO SCH (20:17)
[2018-09-11] MEDS: LEVOTHYROXINE 50 MCG TABLET PO SCH (05:23)
[2018-09-11 07:24] VITALS: BP 116/75
[2018-09-11] MEDS: ASPIRIN 81 MG TABLET EC PO SCH (10:04)
[2018-09-11] MEDS: PAROXETINE 20 MG TABLET PO SCH (10:04)
[2018-09-11] MEDS: GABAPENTIN 300 MG CAPSULE PO SCH ×2 (10:04→20:15)
[2018-09-11] MEDS: CHOLECALCIFEROL 1,000 UNIT TABLET PO SCH (10:04)
[2018-09-11] MEDS: OXYBUTYNIN CHLORIDE 5 MG TABLET PO SCH (10:04)
[2018-09-11] MEDS: NICOTINE 7 MG/24 HR PATCH.TD24 TD SCH (10:05)
[2018-09-11] MEDS: DIVALPROEX 250 MG TABLET.DR PO SCH (12:24)
[2018-09-11] MEDS: DIAZEPAM 5 MG TABLET PO SCH (20:16)
[2018-09-11] MEDS: LOVASTATIN 40 MG TABLET PO SCH (20:16)
[2018-09-11 20:17] VITALS: BP 103/68
[2018-09-12] MEDS: LEVOTHYROXINE 50 MCG TABLET PO SCH (05:46)
[2018-09-12 07:21] VITALS: BP 129/72
[2018-09-12] MEDS: GABAPENTIN 300 MG CAPSULE PO SCH ×2 (08:39→20:31)
[2018-09-12] MEDS: OXYBUTYNIN CHLORIDE 5 MG TABLET PO SCH (08:40)
[2018-09-12] MEDS: CHOLECALCIFEROL 1,000 UNIT TABLET PO SCH (08:40)
[2018-09-12] MEDS: PAROXETINE 20 MG TABLET PO SCH (08:40)
[2018-09-12] MEDS: ASPIRIN 81 MG TABLET EC PO SCH (08:40)
[2018-09-12] MEDS: NICOTINE 7 MG/24 HR PATCH.TD24 TD SCH (08:41)
[2018-09-12] MEDS: DIVALPROEX 250 MG TABLET.DR PO SCH (12:14)
[2018-09-12 19:52] VITALS: BP 112/76
[2018-09-12] MEDS: LOVASTATIN 40 MG TABLET PO SCH (20:31)
[2018-09-12] MEDS: DIAZEPAM 5 MG TABLET PO SCH (20:31)
[2018-09-13] MEDS: LEVOTHYROXINE 50 MCG TABLET PO SCH (05:27)
[2018-09-13 07:16] VITALS: BP 116/73
[2018-09-13] MEDS: ASPIRIN 81 MG TABLET EC PO SCH (08:32)
[2018-09-13] MEDS: CHOLECALCIFEROL 1,000 UNIT TABLET PO SCH (08:33)
[2018-09-13] MEDS: ACETAMINOPHEN 325 MG TABLET PO PRN (08:33)
[2018-09-13] MEDS: GABAPENTIN 300 MG CAPSULE PO SCH ×2 (08:33→20:22)
[2018-09-13] MEDS: NICOTINE 7 MG/24 HR PATCH.TD24 TD SCH (08:33)
[2018-09-13] MEDS: OXYBUTYNIN CHLORIDE 5 MG TABLET PO SCH (08:33)
[2018-09-13] MEDS: PAROXETINE 20 MG TABLET PO SCH (08:33)
[2018-09-13] MEDS: DIVALPROEX 250 MG TABLET.DR PO SCH (11:19)
[2018-09-13 16:43] VITALS: BP 111/67
[2018-09-13 19:56] VITALS: BP 115/70
[2018-09-13] MEDS: DIAZEPAM 5 MG TABLET PO SCH (20:22)
[2018-09-13] MEDS: LOVASTATIN 40 MG TABLET PO SCH (20:22)
[2018-09-14] MEDS: LEVOTHYROXINE 50 MCG TABLET PO SCH (05:33)
[2018-09-14] MEDS ORDERED: DIAZEPAM 5 MG/ML, 2ML IM ONE ×2 (07:30→08:00)
[2018-09-14] MEDS ORDERED: DIAZEPAM 10 MG TABLET PO ONE ×2 (07:30→08:00)
[2018-09-14 07:34] VITALS: BP 123/76
[2018-09-14] MEDS: NICOTINE 7 MG/24 HR PATCH.TD24 TD SCH (08:00)
[2018-09-14] MEDS ORDERED: DIAZEPAM 5 MG/ML, 2ML IM PRN ×2 (08:00→08:30)
[2018-09-14] MEDS: CHOLECALCIFEROL 1,000 UNIT TABLET PO SCH (08:02)
[2018-09-14] MEDS: PAROXETINE 20 MG TABLET PO SCH (08:02)
[2018-09-14] MEDS: ASPIRIN 81 MG TABLET EC PO SCH (08:02)
[2018-09-14] MEDS: OXYBUTYNIN CHLORIDE 5 MG TABLET PO SCH (08:02)
[2018-09-14] MEDS: GABAPENTIN 300 MG CAPSULE PO SCH ×2 (08:02→20:32)
[2018-09-14] MEDS ORDERED: DIAZEPAM 10 MG TABLET PO PRN (08:30)
[2018-09-14] MEDS: DIVALPROEX 500 MG TAB.ER.24H PO SCH (12:00)
[2018-09-14] MEDS: ACETAMINOPHEN 325 MG TABLET PO PRN ×2 (13:55→20:41)
[2018-09-14 19:55] VITALS: BP 103/62
[2018-09-14] MEDS: LOVASTATIN 40 MG TABLET PO SCH (20:32)
[2018-09-14] MEDS: DIAZEPAM 5 MG TABLET PO SCH (20:32)
[2018-09-15] MEDS: LEVOTHYROXINE 50 MCG TABLET PO SCH (05:49)
[2018-09-15 07:22] VITALS: BP 108/66
[2018-09-15] MEDS: ACETAMINOPHEN 325 MG TABLET PO PRN (08:28)
[2018-09-15] MEDS: OXYBUTYNIN CHLORIDE 5 MG TABLET PO SCH (08:29)
[2018-09-15] MEDS: ASPIRIN 81 MG TABLET EC PO SCH (08:29)
[2018-09-15] MEDS: CHOLECALCIFEROL 1,000 UNIT TABLET PO SCH (08:29)
[2018-09-15] MEDS: GABAPENTIN 300 MG CAPSULE PO SCH ×2 (08:29→19:49)
[2018-09-15] MEDS: PAROXETINE 20 MG TABLET PO SCH (08:29)
[2018-09-15] MEDS: NICOTINE 7 MG/24 HR PATCH.TD24 TD SCH (08:30)
[2018-09-15] MEDS: DIVALPROEX 500 MG TAB.ER.24H PO SCH (11:31)
[2018-09-15 16:34] VITALS: BP 110/71
[2018-09-15 19:49] VITALS: BP 103/67
[2018-09-15] MEDS: LOVASTATIN 40 MG TABLET PO SCH (19:49)
[2018-09-15] MEDS: DIAZEPAM 5 MG TABLET PO SCH (19:49)
[2018-09-16] MEDS: LEVOTHYROXINE 50 MCG TABLET PO SCH (05:51)
[2018-09-16 07:14] VITALS: BP 108/65
[2018-09-16] MEDS: CHOLECALCIFEROL 1,000 UNIT TABLET PO SCH (08:21)
[2018-09-16] MEDS: PAROXETINE 20 MG TABLET PO SCH (08:21)
[2018-09-16] MEDS: OXYBUTYNIN CHLORIDE 5 MG TABLET PO SCH (08:21)
[2018-09-16] MEDS: ACETAMINOPHEN 325 MG TABLET PO PRN (08:21)
[2018-09-16] MEDS: GABAPENTIN 300 MG CAPSULE PO SCH ×2 (08:21→22:00)
[2018-09-16] MEDS: NICOTINE 7 MG/24 HR PATCH.TD24 TD SCH (08:22)
[2018-09-16] MEDS: ASPIRIN 81 MG TABLET EC PO SCH (08:22)
[2018-09-16] MEDS: DIVALPROEX 500 MG TAB.ER.24H PO SCH (11:47)
[2018-09-16 16:18] VITALS: BP 108/68
[2018-09-16] MEDS ORDERED: OLANZAPINE 5 MG TABLET PO PRN (19:00)
[2018-09-16 20:07] VITALS: BP 122/80
[2018-09-16] MEDS: DIAZEPAM 5 MG TABLET PO SCH (22:00)
[2018-09-16] MEDS: LOVASTATIN 40 MG TABLET PO SCH (22:01)
[2018-09-17] MEDS: LEVOTHYROXINE 50 MCG TABLET PO SCH (06:03)
[2018-09-17 07:22] VITALS: BP 99/65
[2018-09-17] MEDS: ACETAMINOPHEN 325 MG TABLET PO PRN ×2 (08:17→19:54)
[2018-09-17] MEDS: ASPIRIN 81 MG TABLET EC PO SCH (08:17)
[2018-09-17] MEDS: PAROXETINE 20 MG TABLET PO SCH (08:17)
[2018-09-17] MEDS: NICOTINE 7 MG/24 HR PATCH.TD24 TD SCH (08:17)
[2018-09-17] MEDS: OXYBUTYNIN CHLORIDE 5 MG TABLET PO SCH (08:17)
[2018-09-17] MEDS: CHOLECALCIFEROL 1,000 UNIT TABLET PO SCH (08:17)
[2018-09-17] MEDS: GABAPENTIN 300 MG CAPSULE PO SCH ×2 (08:18→19:52)
[2018-09-17 10:37] VITALS: BP 96/62
[2018-09-17] MEDS: DIVALPROEX 500 MG TAB.ER.24H PO SCH (11:33)
[2018-09-17 16:28] VITALS: BP 116/75
[2018-09-17] MEDS: DIAZEPAM 5 MG TABLET PO SCH (19:52)
[2018-09-17] MEDS: LOVASTATIN 40 MG TABLET PO SCH (19:52)
[2018-09-17 20:00] VITALS: BP 115/74
[2018-09-18] MEDS: LEVOTHYROXINE 50 MCG TABLET PO SCH (05:48)
[2018-09-18 07:14] VITALS: BP 129/80
[2018-09-18] MEDS: GABAPENTIN 300 MG CAPSULE PO SCH ×2 (08:49→20:42)
[2018-09-18] MEDS: CHOLECALCIFEROL 1,000 UNIT TABLET PO SCH (08:49)
[2018-09-18] MEDS: ASPIRIN 81 MG TABLET EC PO SCH (08:50)
[2018-09-18] MEDS: PAROXETINE 20 MG TABLET PO SCH (08:50)
[2018-09-18] MEDS: OXYBUTYNIN CHLORIDE 5 MG TABLET PO SCH (08:50)
[2018-09-18] MEDS: NICOTINE 7 MG/24 HR PATCH.TD24 TD SCH (08:50)
[2018-09-18] MEDS: DIVALPROEX 500 MG TAB.ER.24H PO SCH (11:22)
[2018-09-18 19:33] VITALS: BP 127/77
[2018-09-18] MEDS: ACETAMINOPHEN 325 MG TABLET PO PRN (20:42)
[2018-09-18] MEDS: LOVASTATIN 40 MG TABLET PO SCH (20:42)
[2018-09-18] MEDS: DIAZEPAM 5 MG TABLET PO SCH (20:43)
[2018-09-19] MEDS: LEVOTHYROXINE 50 MCG TABLET PO SCH (05:13)
[2018-09-19 08:00] VITALS: BP 108/72
[2018-09-19] MEDS: OXYBUTYNIN CHLORIDE 5 MG TABLET PO SCH (09:04)
[2018-09-19] MEDS: PAROXETINE 20 MG TABLET PO SCH (09:05)
[2018-09-19] MEDS: GABAPENTIN 300 MG CAPSULE PO SCH ×2 (09:05→20:28)
[2018-09-19] MEDS: ASPIRIN 81 MG TABLET EC PO SCH (09:05)
[2018-09-19] MEDS: CHOLECALCIFEROL 1,000 UNIT TABLET PO SCH (09:05)
[2018-09-19] MEDS: NICOTINE 7 MG/24 HR PATCH.TD24 TD SCH (09:06)
[2018-09-19] MEDS: DIVALPROEX 500 MG TAB.ER.24H PO SCH (12:36)
[2018-09-19 19:43] VITALS: BP 115/72
[2018-09-19] MEDS: LOVASTATIN 40 MG TABLET PO SCH (20:28)
[2018-09-19] MEDS: DIAZEPAM 5 MG TABLET PO SCH (20:29)
[2018-09-20] MEDS: LEVOTHYROXINE 50 MCG TABLET PO SCH (05:59)
[2018-09-20 07:40] VITALS: BP 102/57
[2018-09-20] MEDS: NICOTINE 7 MG/24 HR PATCH.TD24 TD SCH (08:18)
[2018-09-20] MEDS: CHOLECALCIFEROL 1,000 UNIT TABLET PO SCH (08:18)
[2018-09-20] MEDS: GABAPENTIN 300 MG CAPSULE PO SCH ×2 (08:18→20:47)
[2018-09-20] MEDS: ASPIRIN 81 MG TABLET EC PO SCH (08:18)
[2018-09-20] MEDS: PAROXETINE 20 MG TABLET PO SCH (08:18)
[2018-09-20] MEDS: OXYBUTYNIN CHLORIDE 5 MG TABLET PO SCH (08:20)
[2018-09-20] MEDS: DIVALPROEX 500 MG TAB.ER.24H PO SCH (11:12)
[2018-09-20 19:50] VITALS: BP 117/76
[2018-09-20] MEDS: LOVASTATIN 40 MG TABLET PO SCH (20:47)
[2018-09-20] MEDS: DIAZEPAM 5 MG TABLET PO SCH (20:48)
[2018-09-21] MEDS: LEVOTHYROXINE 50 MCG TABLET PO SCH (05:53)
[2018-09-21 07:25] VITALS: BP 124/71
[2018-09-21] MEDS: CHOLECALCIFEROL 1,000 UNIT TABLET PO SCH (08:17)
[2018-09-21] MEDS: ASPIRIN 81 MG TABLET EC PO SCH (08:18)
[2018-09-21] MEDS: GABAPENTIN 300 MG CAPSULE PO SCH ×2 (08:18→20:37)
[2018-09-21] MEDS: OXYBUTYNIN CHLORIDE 5 MG TABLET PO SCH (08:18)
[2018-09-21] MEDS: PAROXETINE 20 MG TABLET PO SCH (08:18)
[2018-09-21] MEDS: NICOTINE 7 MG/24 HR PATCH.TD24 TD SCH (08:18)
[2018-09-21] MEDS: DIVALPROEX 500 MG TAB.ER.24H PO SCH (11:30)
[2018-09-21 19:47] VITALS: BP 110/70
[2018-09-21] MEDS: DIAZEPAM 5 MG TABLET PO SCH (20:37)
[2018-09-21] MEDS: LOVASTATIN 40 MG TABLET PO SCH (20:37)
[2018-09-22] MEDS: LEVOTHYROXINE 50 MCG TABLET PO SCH (05:30)
[2018-09-22 07:24] VITALS: BP 110/73
[2018-09-22] MEDS: ASPIRIN 81 MG TABLET EC PO SCH (08:02)
[2018-09-22] MEDS: GABAPENTIN 300 MG CAPSULE PO SCH ×2 (08:02→21:02)
[2018-09-22] MEDS: CHOLECALCIFEROL 1,000 UNIT TABLET PO SCH (08:02)
[2018-09-22] MEDS: NICOTINE 7 MG/24 HR PATCH.TD24 TD SCH (08:03)
[2018-09-22] MEDS: PAROXETINE 20 MG TABLET PO SCH (08:03)
[2018-09-22] MEDS: OXYBUTYNIN CHLORIDE 5 MG TABLET PO SCH (08:03)
[2018-09-22] MEDS: DIVALPROEX 500 MG TAB.ER.24H PO SCH (11:42)
[2018-09-22 19:43] VITALS: BP 119/77
[2018-09-22] MEDS: DIAZEPAM 5 MG TABLET PO SCH (21:02)
[2018-09-22] MEDS: LOVASTATIN 40 MG TABLET PO SCH (21:02)
[2018-09-23] MEDS: LEVOTHYROXINE 50 MCG TABLET PO SCH (05:17)
[2018-09-23 07:15] VITALS: BP 108/68
[2018-09-23] MEDS: GABAPENTIN 300 MG CAPSULE PO SCH ×2 (08:13→20:30)
[2018-09-23] MEDS: PAROXETINE 20 MG TABLET PO SCH (08:13)
[2018-09-23] MEDS: CHOLECALCIFEROL 1,000 UNIT TABLET PO SCH (08:13)
[2018-09-23] MEDS: OXYBUTYNIN CHLORIDE 5 MG TABLET PO SCH (08:13)
[2018-09-23] MEDS: ASPIRIN 81 MG TABLET EC PO SCH (08:13)
[2018-09-23] MEDS: NICOTINE 7 MG/24 HR PATCH.TD24 TD SCH (08:14)
[2018-09-23] MEDS: DIVALPROEX 500 MG TAB.ER.24H PO SCH (11:37)
[2018-09-23] MEDS: ACETAMINOPHEN 325 MG TABLET PO PRN (16:20)
[2018-09-23 19:30] VITALS: BP 113/73
[2018-09-23] MEDS: LOVASTATIN 40 MG TABLET PO SCH (20:30)
[2018-09-23] MEDS: DIAZEPAM 5 MG TABLET PO SCH (20:30)
[2018-09-24] MEDS: LEVOTHYROXINE 50 MCG TABLET PO SCH (06:12)
[2018-09-24 07:17] VITALS: BP 119/76
[2018-09-24] MEDS: NICOTINE 7 MG/24 HR PATCH.TD24 TD SCH (08:15)
[2018-09-24] MEDS: CHOLECALCIFEROL 1,000 UNIT TABLET PO SCH (08:15)
[2018-09-24] MEDS: PAROXETINE 20 MG TABLET PO SCH (08:15)
[2018-09-24] MEDS: OXYBUTYNIN CHLORIDE 5 MG TABLET PO SCH (08:15)
[2018-09-24] MEDS: GABAPENTIN 300 MG CAPSULE PO SCH ×2 (08:15→20:37)
[2018-09-24] MEDS: ASPIRIN 81 MG TABLET EC PO SCH (08:15)
[2018-09-24] MEDS: DIVALPROEX 500 MG TAB.ER.24H PO SCH (11:00)
[2018-09-24] MEDS ORDERED: GABA300C10 PO (18:27)
[2018-09-24] MEDS ORDERED: ASPI81TA45 PO (18:27)
[2018-09-24] MEDS ORDERED: LEVO50TA PO (18:27)
[2018-09-24] MEDS ORDERED: OXYB5TAB7 PO (18:27)
[2018-09-24] MEDS ORDERED: CHOL10003 PO (18:27)
[2018-09-24] MEDS ORDERED: DIVA500T4 PO (18:27)
[2018-09-24] MEDS ORDERED: LOVA40TA2 PO (18:27)
[2018-09-24] MEDS ORDERED: PARO20TA4 PO (18:27)
[2018-09-24] MEDS ORDERED: DIAZ5TAB4 PO (18:27)
[2018-09-24] MEDS ORDERED: CHLO25TA4 PO (18:27)
[2018-09-24 19:15] VITALS: BP 154/73
[2018-09-24] MEDS: DIAZEPAM 5 MG TABLET PO SCH (20:37)
[2018-09-24] MEDS: LOVASTATIN 40 MG TABLET PO SCH (20:37)
[2018-09-25] MEDS: LEVOTHYROXINE 50 MCG TABLET PO SCH (05:42)
[2018-09-25 07:06] VITALS: BP 101/67
[2018-09-25] MEDS: CHOLECALCIFEROL 1,000 UNIT TABLET PO SCH (08:27)
[2018-09-25] MEDS: NICOTINE 7 MG/24 HR PATCH.TD24 TD SCH (08:27)
[2018-09-25] MEDS: PAROXETINE 20 MG TABLET PO SCH (08:27)
[2018-09-25] MEDS: ASPIRIN 81 MG TABLET EC PO SCH (08:27)
[2018-09-25] MEDS: GABAPENTIN 300 MG CAPSULE PO SCH (08:28)
[2018-09-25] MEDS: OXYBUTYNIN CHLORIDE 5 MG TABLET PO SCH (08:28)
== END 2018-09-25 09:35 | disposition home or self-care (01) | DRG 57 ==
LOC: 3E 18:05 → INTOOBSV 18:05 → OBSVTOIN 18:05 → 3E 09-04 18:38
PROVIDERS: ADMIT Psychiatry & Neurology Psychosomatic Medicine; ATTEND Psychiatry & Neurology Psychosomatic Medicine
DX: G30.9 Alzheimer's disease, unspecified (principal); N39.0 Urinary tract infection, site not specified; F14.20 Cocaine dependence, uncomplicated; F15.20 Other stimulant dependence, uncomplicated; F02.81 Dementia in other diseases classified elsewhere, unspecified severity, with behavioral disturbance; F32.9 Major depressive disorder, single episode, unspecified; F22 Delusional disorders; E03.9 Hypothyroidism, unspecified; E78.5 Hyperlipidemia, unspecified; F02.80 Dementia in other diseases classified elsewhere, unspecified severity, without behavioral disturbance, psychotic disturbance, mood disturbance, and anxiety; F12.21 Cannabis dependence, in remission; F17.210 Nicotine dependence, cigarettes, uncomplicated; F41.9 Anxiety disorder, unspecified; G47.00 Insomnia, unspecified; G89.29 Other chronic pain; I10 Essential (primary) hypertension; I25.10 Atherosclerotic heart disease of native coronary artery without angina pectoris; R45.850 Homicidal ideations; Z79.82 Long term (current) use of aspirin; Z82.0 Family history of epilepsy and other diseases of the nervous system; Z83.3 Family history of diabetes mellitus
CPT/HCPCS: 36415; 71045; 80053; 80061; 80307; 81001; 82140; 82607; 83690; 84439; 84443; 85025; 86592; 87086; 93005; 99285; J3360; J3486; 92522-GN

== ENCOUNTER 2018-09-29 14:33 | Emergency (ER) | payer MEDICARE, MEDICAID, OTHER ==
[~2018-09-29] VITALS: Ht 162.6 cm; Wt 70.9 kg
[~2018-09-29 14:33] MED LIST changes: +CHLO25TA4 PO; +CHOL10003 PO; +DIAZ5TAB4 PO; +DIVA500T4 PO; +LEVO50TA PO
[2018-09-29 14:36] VITALS: BP 131/86
--- NOTE | 2018-09-29 14:38 | NUR ---
[facility] for si - pt denies si at this time however stating she is communicating with family members. retirement refusing pt at this time stating she is violent toward staff. sw to contact family and retirement. pa at bedside for medical eval
[2018-09-29 15:11] LABS: BASOPHILS # (AUTO) 0.05 x10^3/uL (0-0.1); BASOPHILS % (AUTO) 1 % (0-1); EOSINOPHILS # (AUTO) 0.22 x10^3/uL (0-0.4); EOSINOPHILS % (AUTO) 4 % (1-7); LYMPHOCYTES # (AUTO) 1.48 x10^3/uL (1-3.4); LYMPHOCYTES % (AUTO) 29 % (22-44); MD NO; MEAN CORPUSCULAR HEMOGLOBIN 31.2 pg (27.0-34.8); MEAN CORPUSCULAR HGB CONC 33.4 g/dL (32.4-35.8); MEAN CORPUSCULAR VOLUME 93.5 fL (80-100); MEAN PLATELET VOLUME 7.1 fL (7.4-10.4); MONOCYTES # (AUTO) 0.63 x10^3/uL (0.2-0.8); MONOCYTES % (AUTO) 12 % (2-9); NEUTROPHILS # (AUTO) 2.74 x10^3/uL (1.8-6.8); NEUTROPHILS % (AUTO) 54 % (42-75); PLATELET COUNT 276 x10^3/uL (130-400); RED BLOOD COUNT 3.81 x10^6/uL (3.82-5.3); RED CELL DISTRIBUTION WIDTH 15.4 % (9.6-15.2)
[2018-09-29 15:23] LABS: ALBUMIN 3.2 g/dL (3.4-5.0); ANION GAP 6 mmol/L (5-15); CALCIUM 8.5 mg/dL (8.5-10.1); CHLORIDE 104 mmol/L (98-107); CREATININE 0.97 mg/dL (0.55-1.02)
[2018-09-29 15:24] LABS: SALICYLATE LEVEL < 1.7 mg/dL (2.8-20.0)
[2018-09-29 15:35] LABS: MICROSCOPIC NOT IND
--- NOTE | 2018-09-29 15:35 | NUR ---
pt resting in bed, sw to contact family and [facility]. pt not on legal hold at this time. no si/hi.
[2018-09-29 15:37] LABS: CULTURE INDICATED? NO
[2018-09-29 15:46] LABS: AMPHETAMINE SCREEN, URINE Negative (Negative); BARBITURATE SCREEN, URINE Negative (Negative); BENZODIAZEPINE SCREEN, URINE Positive (Negative); CANNABINOID SCREEN, URINE Negative (Negative); COCAINE SCREEN, URINE Negative (Negative); METHADONE SCREEN, URINE Negative (Negative); OPIATE SCREEN, URINE Negative (Negative)
--- NOTE | 2018-09-29 16:35 | NUR ---
pt sleeping in bed, equal chest rise and fall. no needs at this time. son to come take back to [facility]
--- NOTE | 2018-09-29 17:05 | NUR ---
pt released to son
== END 2018-09-29 17:12 | disposition home or self-care (01) ==
LOC: ED 16:14
DX: F03.91 Unspecified dementia, unspecified severity, with behavioral disturbance (principal); G89.11 Acute pain due to trauma; M79.662 Pain in left lower leg
CPT/HCPCS: 36415; 71045; 80048; 80307; 81003; 82040; 85025; 99284